=== PATIENT | female | born 1940 | race Caucasian/White ===

== ENCOUNTER → 2017-01-19 | Outpatient (CLI) | payer MEDICARE ==
--- NOTE | 2017-01-20 08:22 | MM ---
Reason for exam: screening (asymptomatic). Last mammogram was performed 1 year ago. History: Patient is postmenopausal. Family history of premenopausal breast cancer in sister at age 50 and premenopausal breast cancer in mother at age 50. Took estrogen for 10 years beginning at age 55. Physical Findings: A clinical breast exam by your physician is recommended on an annual basis and results should be correlated with mammographic findings. MG Screening Mammo w CAD Bilateral CC and MLO view(s) were taken. Prior study comparison: January 15, 2016, bilateral MG screening mammo w CAD. September 06, 2014, bilateral MG screening mammo w CAD. June 12, 2013, bilateral digital screening mammo w/CAD. There are scattered fibroglandular densities. Finding: There are typically benign round calcifications in both breasts. Grouped round calcifications in the left central position, stable. There is no discrete abnormality. ASSESSMENT: Benign, BI-RAD 2 RECOMMENDATION: Routine screening mammogram of both breasts in 1 year.
== END | disposition home or self-care (01) ==
LOC: RADMAMWWP 14:13
PROVIDERS: ATTEND Obstetrics & Gynecology
DX: Z12.31 Encounter for screening mammogram for malignant neoplasm of breast (principal)

== ENCOUNTER 2017-07-26 15:41 | Inpatient (IN) | payer MEDICARE ==
[2017-07-26] MEDS ORDERED: SODIUM CHLORIDE 0.9% 500 ML IV STA (16:08)
[2017-07-26] MEDS ORDERED: SODIUM CHLORIDE 0.9% 1,000 ML IV STA (16:08)
[2017-07-26] MEDS ORDERED: DILTIAZEM 5 MG/ML 5 ML VIAL IVP STA (16:08)
--- NOTE | 2017-07-26 16:10 | ED ---
General Adult HPI - General Chief complaint: Arrhythmia/Palpitations Stated complaint: abnormal EKG-sent by Dr. Henson Time Seen by Provider: 07/26/17 16:08 Source: patient, RN notes reviewed, old records reviewed Mode of arrival: wheelchair Limitations: no limitations - History of Present Illness Initial comments: This is a 77-year-old female to the ER for evaluation states this patient's today for evaluation of shortness of breath unable to get her cough up. Patient has x-ray history of smoking as well as history of high blood pressure high cholesterol. Patient saw family doctor in evaluation for this issue. She was sent to ER for evaluation of heart rate. Patient coming in complaining of shortness of breath with exertion well tonight otherwise denying any chest pain no recent fevers. Patient states she still feels like she is had the flu for the past week, no nausea vomiting diarrhea. No recent change in medications - Related Data Home Medications Medication Instructions Recorded Confirmed Ascorbic Acid [Vitamin C] 1,000 mg PO DAILY 12/31/14 12/31/14 Aspirin 81 mg PO DAILY 12/31/14 12/31/14 Calcium/Magnesium/Zinc 1 tab PO DAILY 12/31/14 12/31/14 [Uodwzpv-Cednqoufq-Jztn Tablet] Famotidine [Pepcid AC] 10 mg PO DAILY PRN 12/31/14 12/31/14 Fish Oil/Borage/Flax/Om3,6,9 1 300 mg PO DAILY 12/31/14 12/31/14 [[place] 3-6-9 Complex Softgel] Potassium Chloride [K-Tab ER] 10 meq PO DAILY 12/31/14 12/31/14 Quinapril/Hydrochlorothiazide 1 tab PO HS 12/31/14 12/31/14 [Quinapril-Hctz 20-25 mg Tab] Rosuvastatin [Crestor] 10 mg PO DAILY 12/31/14 12/31/14 Vitamin B Complex 1 each PO DAILY 12/31/14 12/31/14 Allergies Allergy/AdvReac Type Severity Reaction Status Date / Time No Known Allergies Allergy Verified 12/31/14 08:25 Review of Systems ROS Statement: Those systems with pertinent positive or pertinent negative responses have been documented in the HPI. ROS Other: All systems not noted in ROS Statement are negative. Past Medical History Past Medical History: GERD/Reflux, Hyperlipidemia, Hypertension, Skin Disorder Additional Past Medical History / Comment(s): PSORIASIS History of Any Multi-Drug Resistant Organisms: None Reported Additional Past Surgical History / Comment(s): COLONOSCOPY,OVARY REMOVED Past Anesthesia/Blood Transfusion Reactions: No Reported Reaction Past Psychological History: No Psychological Hx Reported Smoking Status: Former smoker Past Alcohol Use History: Rare Past Drug Use History: None Reported - Past Family History Sister(s) Family Medical History: Cancer Additional Family Medical History / Comment(s): BREAST General Exam Limitations: no limitations General appearance: alert, in no apparent distress Head exam: Present: atraumatic, normocephalic, normal inspection Eye exam: Present: normal appearance, PERRL, EOMI. Absent: scleral icterus, conjunctival injection, periorbital swelling ENT exam: Present: normal exam, mucous membranes moist Neck exam: Present: normal inspection. Absent: tenderness, meningismus, lymphadenopathy Respiratory exam: Present: normal lung sounds bilaterally. Absent: respiratory distress, wheezes, rales, rhonchi, stridor Cardiovascular Exam: Present: tachycardia, irregular rhythm, normal heart sounds. Absent: systolic murmur, diastolic murmur, rubs, gallop, clicks GI/Abdominal exam: Present: soft, normal bowel sounds. Absent: distended, tenderness, guarding, rebound, rigid Extremities exam: Present: normal inspection, full ROM, normal capillary refill. Absent: tenderness, pedal edema, joint swelling, calf tenderness Back exam: Present: normal inspection Neurological exam: Present: alert, oriented X3, CN II-XII intact Psychiatric exam: Present: normal affect, normal mood Skin exam: Present: warm, dry, intact, normal color. Absent: rash Course Vital Signs 07/26/17 15:53 Temperature 98.1 F Pulse Rate 139 H Respiratory 18 Rate Blood Pressure 145/93 O2 Sat by Pulse 97 Oximetry - Reevaluation(s) Reevaluation #1: 07/26/17 16:32 Patient denies pain, no significant shortness of breath with rest but states she does feel better with heart rate control EKG Findings - EKG Comments: EKG Findings:: EKG shows a flutter rate of 138, QRS 134, QTC 563 Medical Decision Making - Medical Decision Making 77 female DEL with new onset atrial fibrillation with RVR, patient be admitted for anticoagulation and rate control, cardiology evaluation and monitoring of hemodynamic status - Radiology Data Radiology results: report reviewed (Chest x-rays negative for acute disease), image reviewed Critical Care Time Critical Care Time: Yes Total Critical Care Time: 31 Disposition Clinical Impression: Atrial fibrillation, Atrial fibrillation with RVR Disposition: ADMITTED IP TO THIS HOSP Condition: Fair Referrals: Shilo Henson MD [Primary Care Provider] - 1-2 days
[2017-07-26] MEDS ORDERED: DILTIAZEM 125 MG in SODIUM CHLORIDE 0.9% 100 ML IV ONE (16:15)
[2017-07-26] MEDS ORDERED: HEPARIN SODIUM,PORCINE 5,000 UNIT/ML 1 ML VIAL IV PRN (16:33)
[2017-07-26] MEDS ORDERED: ASPIRIN 81 MG PO STA (16:33)
[2017-07-26] MEDS ORDERED: NITROGLYCERIN SL TABS 0.4 MG TAB SUBLINGUAL PRN (16:33)
[2017-07-26] MEDS ORDERED: HEPARIN SODIUM,PORCINE 5,000 UNIT/ML 1 ML VIAL IV ONE (16:33)
[2017-07-26] MEDS ORDERED: HEPARIN SOD,PORK IN 0.45% NACL 25,000 UNIT in 0.45% NACL 1 500ML.BAG IV SCH (16:45)
[2017-07-26 16:46] LABS: Basophils # (A) 0.1 k/uL (0-0.2); Basophils % (A) 1 %; Eosinophils # (A) 0.3 k/uL (0-0.7); Eosinophils % (A) 3 %; HCT 46.4 % (34.0-46.0); HGB 14.5 gm/dL (11.4-16.0); Lymphocytes # (A) 2.3 k/uL (1.0-4.8); Lymphocytes % (A) 27 %; MCH 30.7 pg (25.0-35.0); MCHC 31.2 g/dL (31.0-37.0); MCV 98.3 fL (80.0-100.0); Mean Platelet Volume 8.3; Monocytes # (A) 0.5 k/uL (0-1.0); Monocytes % (A) 6 %; Neutrophils # (A) 5.2 k/uL (1.3-7.7); Neutrophils % (A) 60 %; Platelet Count 214 k/uL (150-450); RBC 4.72 m/uL (3.80-5.40); RDW 14.1 % (11.5-15.5); WBC 8.5 k/uL (3.8-10.6)
[2017-07-26 16:52] LABS: INR 1.1 (<1.2); Partial Thromboplastin Time 22.9 sec (22.0-30.0); Prothrombin Time 10.3 sec (9.0-12.0)
[2017-07-26 16:53] LABS: ALT 105 U/L (9-52); AST 94 U/L (14-36); Albumin 4.5 g/dL (3.5-5.0); Alkaline Phosphatase 100 U/L (38-126); Anion Gap 9 mmol/L; Blood Urea Nitrogen 20 mg/dL (7-17); Calcium 9.7 mg/dL (8.4-10.2); Carbon Dioxide 31 mmol/L (22-30); Chloride 103 mmol/L (98-107); Glucose 99 mg/dL (74-99); Phosphorus 3.6 mg/dL (2.5-4.5); Potassium 4.2 mmol/L (3.5-5.1); Sodium 143 mmol/L (137-145); Total Bilirubin 0.6 mg/dL (0.2-1.3); Total Protein 7.7 g/dL (6.3-8.2)
[2017-07-26 17:05] LABS: Creatine Kinase 49 U/L (30-135)
[2017-07-26 17:18] LABS: Creatine Kinase MB 0.8 ng/mL (0.0-2.4); Troponin I <0.012 ng/mL (0.000-0.034)
--- NOTE | 2017-07-26 17:25 | XR ---
EXAMINATION TYPE: XR chest 2V DATE OF EXAM: 07/26/2017 COMPARISON: NONE HISTORY: Abnormal cardiogram. Weakness. TECHNIQUE: Frontal and lateral views of the chest are obtained. FINDINGS: There is no heart failure nor confluent pneumonic infiltrate. There is mild coarsening of interstitial markings. Heart size is normal. There are chest leads. Costophrenic angles are clear. IMPRESSION: Minimal fibrotic changes. No acute lung disease. No heart failure.
[2017-07-26] MEDS: SODIUM CHLORIDE 0.9% 1,000 ML IV SCH (19:30)
[2017-07-26 20:38] LABS: Creatine Kinase 46 U/L (30-135)
[2017-07-26 20:50] LABS: Creatine Kinase MB 0.9 ng/mL (0.0-2.4); Troponin I <0.012 ng/mL (0.000-0.034)
[2017-07-26] MEDS: METOPROLOL TARTRATE 25 MG TAB PO SCH (21:18)
[2017-07-26] MEDS: FUROSEMIDE 10 MG/ML 4 ML VIAL IV SCH (21:18)
--- NOTE | 2017-07-26 21:47 | HP ---
HISTORY AND PHYSICAL CHIEF COMPLAINT: Shortness of breath. HISTORY OF PRESENT ILLNESS: This 77-year-old female presented to the office after she had called the office requesting some medications for flu. Upon talking with the patient, it appeared that the patient's symptoms were not respiratory but probably cardiac. The patient's symptoms have been present for the past 2- to 3-week range. She says it started with a little cold, but the cold symptoms have practically resolved. She hardly has any cough or any nasal or chest congestion. The patient has no chest pain. She feels her chest is tight. With any activity she gets out of breath. Normally she exercises about 30 minutes on a treadmill; now she is on only about 5 minutes and she is out of breath. She also exhibits some orthopnea. She sleeps on 3 pillows and has to get up by 5:00; she has to sit up on the edge of the bed to catch her breath. The patient says she is better when she is sitting up. Again there are no symptoms to suggest pericarditis. She does not recognize that her heart rate is racing. She has had previous occasional extrasystole. The patient also has had a long-standing history of hypertension, hyperlipidemia. She has mild aortic stenosis. The patient has really not taken any medications for the present symptoms. When she was seen in the office she was noted to have a heart rate of 140. She had an EKG that revealed atrial flutter 2:1. The patient's blood pressure is stable. Blood pressure in the office was 150/80. She weighs 187 pounds. She is 5 feet 4 inches tall and has a BMI of 32.1. The patient in view of this was referred to the emergency room. PAST MEDICAL HISTORY: 1. Hypertension for the past about 17 years. 2. Mild COPD. Patient is an ex-smoker; quit smoking 16 years ago. She has had no history of liver disease, kidney disease or any diabetes, cancer, thyroid condition, ulcers, TB, hepatitis; no history of any rheumatic fever or myocardial infarction or CVA. Patient does have a history of mild right right carotid stenosis and moderate left carotid stenosis. No symptoms with that. She does have mild aortic stenosis. The patient does have a history of psoriasis. PAST SURGICAL HISTORY: 1. Oophorectomy. She is 3 para 3. PERSONAL HISTORY: She is an ex-smoker; used to smoke a pack a day for 25 years; quit 16 years ago. Alcohol: None. Vaccinations: Declined. ALLERGIES: NONE KNOWN. MEDICATIONS: Medications include: 1. Crestor 10 mg daily. 2. Quinapril/hydrochlorothiazide 20/25 one daily. 3. Potassium chloride 10 mEq daily. 4. Aspirin 81 mg daily. SOCIAL HISTORY: Patient is and lives with her spouse. She does exercise regularly by lifting weights and being on a treadmill. She has not exercised much in the past 2 to 3 weeks. FAMILY MEDICAL HISTORY: Father at the age of 78 with acute myocardial infarction. Mother at age 58 with carcinoma of the breast. She had a CVA at 56. Patient had 6 brothers, 5 of whom are . They all had coronary artery disease. One brother is doing okay. Patient has 2 sisters doing okay. One sister of carcinoma of the breast at the age of 73. The patient does have 4 half-sisters and 1 half-brother, doing okay. Patient has 2 daughters and 1 son, doing okay. They all have a history of psoriasis. REVIEW OF SYSTEMS: NEURO: Denies any headaches, dizziness. No double vision or blurred vision. No symptoms of TIA or syncope or seizures. PSYCH: No anxiety, depression. CARDIAC: Denies chest pain. Does have some tightness of the chest and shortness of breath. Shortness of breath is mostly dyspnea on exertion. RESPIRATORY: Minimal cough. No hemoptysis. GI: No nausea, vomiting, abdominal pain, diarrhea, constipation, hematochezia, melena. : No symptoms of dysuria, hematuria, urgency or frequency. EXTREMITIES: Denies pain, edema. CONSTITUTIONAL: No fever, chills. SKIN: Has a history of psoriasis. Weight is stable. ENT: No symptoms. PHYSICAL EXAMINATION: Pleasant female, at present in no distress. VITAL SIGNS: As mentioned above, blood pressure was 150/80 with heart rate of 140. Respirations are 18. Afebrile. HEENT: Normocephalic. Pupils reactive. Nostrils clear. Oral cavity moist. Ears reveal no drainage. NECK: Supple. No JVD. Palpable carotid bruits, right more prominent than left. CHEST EXAMINATION: Occasional rhonchi, right base. CARDIAC: Distant heart sounds, S1, S2 with no gallops. Irregular rapid rhythm. ABDOMEN: Soft. No palpable masses. Bowel sounds normal. No organomegaly. No abdominal bruits. Extremities reveal no edema. Good pulses, both upper and lower extremities. Neurologically awake, alert, oriented x3 with well-coordinated movements. LABORATORY ASSESSMENT: CBC with a hemoglobin of 14.5, white count 8.5, platelet count 214. PT, PTT are normal. Electrolytes are normal except for a CO2 count of 31. BUN is 20, creatinine 0.9. AST 94, ALT 105. Negative troponins. Thyroid is normal. Albumin is normal. Chest x-ray: Official report pending; however, it appears that the patient has some venous congestion and borderline cardiomegaly. The radiologist, however, feels the patient has no heart failure. EKG reveals atrial flutter 2:1. ASSESSMENT: 1. Atrial flutter 2:1 rapid rate. 2. 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 3. Hypertension with hypertensive cardiovascular disease. 4. History of hyperlipidemia, on medical therapy. 5. Carotid stenosis with no symptoms. 6. Psoriasis. PLAN: The patient at present is stable. Continue present medical regimen. Patient has been placed on Cardizem drip, anticoagulated. The patient will have an echocardiogram done and we will give the patient a dose of Lasix. Have Cardiology evaluate the patient in view of the flutter. Patient's condition was discussed with the patient. MMODL / BHUPENDRAN: [id number] /
[2017-07-27 02:19] LABS: Appearance,Urine Clear (Clear); Bilirubin,Urine Negative (Negative); Blood,Urine Negative (Negative); Color,Urine Light Yellow; Glucose,Urine (UA) Negative (Negative); Ketones,Urine Negative (Negative); Leukocyte Esterase,Urine Trace (Negative); Mucus,Urine Rare /hpf; Nitrite,Urine Negative (Negative); Protein,Urine Negative (Negative); Specific Gravity,Urine 1.006 (1.001-1.035); Urobilinogen,Urine <2.0 mg/dL (<2.0); WBC,Urine 2 /hpf (0-5)
[2017-07-27] MEDS: SODIUM CHLORIDE 0.9% 1,000 ML IV SCH (02:46)
[2017-07-27 03:03] LABS: Creatine Kinase 52 U/L (30-135)
[2017-07-27 03:17] LABS: Troponin I <0.012 ng/mL (0.000-0.034)
[2017-07-27 06:54] LABS: Mean Platelet Volume 7.8; Platelet Count 213 k/uL (150-450)
[2017-07-27 07:03] LABS: Cholesterol 149 mg/dL (<200); HDL Cholesterol 55 mg/dL (40-60); LDL Cholesterol,Calculated 69 mg/dL (0-99); Triglycerides 126 mg/dL (<150)
[2017-07-27] MEDS: FUROSEMIDE 10 MG/ML 4 ML VIAL IV SCH ×2 (08:03→20:35)
[2017-07-27] MEDS: METOPROLOL TARTRATE 25 MG TAB PO SCH (08:03)
[2017-07-27] MEDS ORDERED: ASPIRIN 325 MG TAB PO SCH (09:00)
--- NOTE | 2017-07-27 10:01 | CONS ---
CONSULTATION CHIEF COMPLAINT: Fatigue and shortness of breath. This is a 77-year-old lady with history of hypertension and dyslipidemia who presented to her primary care physician with asking for Tamiflu thinking that she had a flu-like illness. The patient's symptoms started about 2-3 weeks ago, initially 2-3 weeks ago, initially started with some cold-like symptoms that resolved spontaneously, but subsequently she has been becoming progressively short of breath. She normally walks on the treadmill for about 30 minutes. Now she is only able to walk for about 5 minutes, and is becoming short of breath. She also has orthopnea. She denies leg edema, palpitations, dizziness or syncope. There is no prior history of coronary artery disease or congestive heart failure. She has had echocardiograms in the past and have showed normal LV function with mild aortic stenosis. On this admission, she was in new onset atrial flutter with 2-1 block. The patient is currently on intravenous Cardizem with better controlled ventricular rate and is on IV heparin. PAST MEDICAL HISTORY: Significant for hypertension, dyslipidemia. MEDICATIONS: Medications at home include Crestor 10 mg daily, and quinapril and K-Dur. ALLERGIES: No known drug allergies. FAMILY HISTORY: Negative for premature coronary artery disease. SOCIAL HISTORY: Negative for smoking, EtOH abuse, or drug abuse. REVIEW OF SYSTEMS: HEENT is unremarkable. Cardiac as described above. Respiratory as described above. GI negative. Genitourinary negative. Allergy/Immunology: None. Skin: Negative. Musculoskeletal negative. Endocrine: Negative. Derm: Negative. Constitutional negative. Oncological negative. Rest of the system review is not relevant. EXAM: Comfortable at rest. Heart rate is 110 beats per minute, irregularly irregular. Blood pressure is 147/72, respirations 18. Chest exam reveals good air entry bilaterally. Heart exam reveals first and second heart sounds, irregular rhythm. Systolic murmur at apex. Abdomen is soft. Exam of extremities did not reveal edema. Peripheral pulses are felt. LABS: Do show that the troponins are negative. TSH is normal. LDL cholesterol is 69, creatinine is normal at 0.9. Hemoglobin is 14.5. ASSESSMENT: Typical atrial flutter with poorly controlled ventricular rate. PLAN: The patient's atrial flutter seems to be at least 3-week-old at this time. I am going to start her on anticoagulant and beta nav for rate control. Obtain a 2D echo. Once heart rate is well controlled, she can be discharged home and I will do a transesophageal echo followed by cardioversion after 3 weeks of anticoagulation. If she is covered for Eliquis, we will start her on Eliquis. Thank you for letting us to participate in the care of this pleasant lady. JOANNA / RADHIKA: [id number] /
[2017-07-27] MEDS: APIXABAN 5 MG TAB PO SCH ×2 (10:53→20:35)
[2017-07-27] MEDS: METOPROLOL SUCCINATE (ER) 50 MG TAB.ER.24H PO SCH (10:53)
--- NOTE | 2017-07-27 17:13 | ECHOF ---
Referral Reason:afib MEASUREMENTS -------- HEIGHT: 162.6 cm WEIGHT: 85.7 kg BP: 147/70 RVIDd: 2.9 cm (< 3.3) IVSd: 1.6 cm (0.6 - 1.1) LVIDd: 3.5 cm (3.9 - 5.3) LVPWd: 1.6 cm (0.6 - 1.1) IVSs: 1.8 cm LVIDs: 2.5 cm LVPWs: 1.8 cm LAESV Index (A-L): 36.77 ml/m Ao Diam: 3.2 cm (2.0 - 3.7) AV Cusp: 1.3 cm (1.5 - 2.6) LA Diam: 3.3 cm (2.7 - 3.8) EPSS: 0.8 cm MV E Johnathon: 1.49 m/s MV DecT: 417 ms MV A Johnathon: 0.01 m/s MV E/A Ratio: 232.87 AV maxP.93 mmHg AV meanP.39 mmHg AR PHT: 538 ms RAP: 15.00 mmHg RVSP: 49.15 mmHg MV EF SLOPE: 70.42 mm/s (70 - 150) MV EXCURSION: 1.29 cm (> 18.000) FINDINGS -------- Atrial fibrillation. This was a technically adequate study. The left ventricular size is normal. There is moderate concentric left ventricular hypertrophy. O verall left ventricular systolic function is normal with, an EF between 55 - 60 %. The right ventricle is normal in size and function. LA is moderately dilated 34-39 ml/m2 RA appears enlarged. Aortic valve is trileaflet and is moderately thickened. There is moderate aortic regurgitation. T he aortic pressure half-time by doppler is 538ms. There is mild to moderate aortic stenosis present . Peak/mean gradient across the Aortic Valve is 29.93mmHg / 16.39mmHg. The mitral valve leaflets are mildly thickened. Moderate mitral annular calcification present. Mo [id number] mitral regurgitation is present. The peak and mean MV gradients are 12.22mmHg 5.0 1mmHg as measured by doppler. Mitral valve pressure gradients are due to aortic insufficiency and a trial fibrillation. Moderate to severe tricuspid regurgitation present. There is mild to moderate pulmonary hypertensio n. The right ventricular systolic pressure, as measured by Doppler, is 49.15mmHg. Trace/mild (physiologic) pulmonic regurgitation. The aortic root size is normal. The IVC is dilated with normal collapse. The pericardium is normal. CONCLUSIONS -------- 1. Atrial fibrillation. 2. This was a technically adequate study. 3. The left ventricular size is normal. 4. There is moderate concentric left ventricular hypertrophy. 5. Overall left ventricular systolic function is normal with, an EF between 55 - 60 %. 6. LA is moderately dilated 34-39 ml/m2 7. RA appears enlarged. 8. Aortic valve is trileaflet and is moderately thickened. 9. There is moderate aortic regurgitation. 10. The aortic pressure half-time by doppler is 538ms. 11. There is mild to moderate aortic stenosis present. 12. Peak/mean gradient across the Aortic Valve is 29.93mmHg / 16.39mmHg. 13. The mitral valve leaflets are mildly thickened. 14. Moderate mitral annular calcification present. 15. Yssfqurr-[id number] mitral regurgitation is present. 16. The peak and mean MV gradients are 12.22mmHg 5.01mmHg as measured by doppler. 17. Mitral valve pressure gradients are due to aortic insufficiency and atrial fibrillation. 18. Moderate to severe tricuspid regurgitation present. 19. There is mild to moderate pulmonary hypertension. 20. The right ventricular systolic pressure, as measured by Doppler, is 49.15mmHg. 21. Trace/mild (physiologic) pulmonic regurgitation. 22. The aortic root size is normal. 23. The IVC is dilated with normal collapse. EXECUTIVE CONSULTANT: Dar Trotter RDCS
--- NOTE | 2017-07-27 18:46 | P.PN ---
Subjective Progress Note Date: 07/27/17 Principal diagnosis: Atrial fib flutter This 77-year-old female was admitted to the hospital yesterday with about a 3 week duration of dyspnea on exertion and some orthopnea and occasional PND. The patient denied any symptoms of palpitations or angina. She was noted to be in atrial flutter at the time of my examination with a rate of about 140. The patient was felt to be in 2-1 atrial flutter block. She was referred to the emergency room. Cardizem drip was started. Patient's heart rate slowed down but the patient was noted to be in atrial flutter fib subsequently. She had no other associated symptoms. There's shortness of breath was most of dyspnea with activity. She normally does treadmill 20 minutes. She says she is only been doing about 5 minutes and that too was a push. Patient has been anticoagulated since admission and the Cardizem drip was down to 2.5 mg which will be increased to 5 mg this morning as the heart rate is still in the 120s. Patient's been given 2 doses of Lasix as she has symptoms suggestive some CHF. Patient did have echocardiogram done which reveals adequate left ventricular function however there is some dilatation of biatria, she does have evidence of mild to moderate aortic stenosis with some aortic regurgitation and moderate mitral regurgitation and tricuspid regurgitation and mild to moderate pulmonary hypertension. The patient seen by cardiology consult noted. A planned place the patient on a beta nav and plan a cardioversion in 3 weeks. Patient hasn 't been on heparin and since no further invasive evaluation planned at this time she'll be switched over to Eliquis with 5 mg twice a day. REVIEW OF SYSTEMS: Neuro: Denies any headaches dizziness. Psych: Denies anxiety depression feels oriented. Cardiac: Denies chest pain and angina palpitations. Respiratory: Does have dyspnea on exertion getting to the bathroom. GI: Denies nausea vomiting or abdominal pain. No diarrhea or constipation, no bowel movement yet. : Denies dysuria hematuria. Extremities: Denies pain. No edema. Skin: Intact. Constitutional: No fever, chills. Objective - Vital Signs Vital signs: Vital Signs Temp 97.6 F 07/27/17 16:00 Pulse 132 H 07/27/17 16:00 Resp 18 07/27/17 16:00 BP 121/58 07/27/17 16:00 Pulse Ox 94 L 07/27/17 16:00 Intake & Output 07/26/17 07/27/17 07/27/17 18:59 06:59 18:59 Intake Total 1179.472 960 Output Total 400 Balance 779.472 960 Weight 80.739 kg 86.1 kg Intake: Intake, IV Titration 1179.472 Amount Diltiazem 125 mg In 30 Sodium Chloride 0.9% 100 ml @ 5 MG/HR 5 mls/hr IV .Q24H ONE Rx#:[id number] Heparin Sod,Pork in 0.45% 149.472 NaCl 25,000 unit In 0.45 % NaCl 1 500ml.bag @ 12 UNITS/KG/HR 19.37 mls/hr IV .Q24H TJ Rx#: [id number] Sodium Chloride 0.9% 1, 1000 000 ml @ 100 mls/hr IV . Q10H TJ Rx#:[id number] Oral 960 Output: Urine 400 Other: Voiding Method Toilet Toilet # Voids 2 1 # Bowel Movements 0 PHYSICAL EXAMINATION: Cooperative, at present in no acute distress. HEENT: Neck supple. No JVD. Chest: Clear to auscultation percussion. Cardiac: Normal S1-S2 heart rhythm is irregularly irregular no gallops systolic murmur 2/6 right second intercostal space and left sternal border and apex. Abdomen: Soft bowel sounds present. Extremities: No edema no tenderness Neurologically: Awake, alert, oriented with well-coordinated movements. - Labs CBC & Chem 7: 07/27/17 06:15 07/26/17 14:30 Labs: Abnormal Lab Results - Last 24 Hours (Table) 07/26/17 07/27/17 07/27/17 Range/Units 22:20 02:07 06:15 APTT 54.4 H 35.6 H (22.0-30.0) sec Ur Leukocyte Esterase Trace H (Negative) Urine Mucus Rare H (None) /hpf Assessment and Plan Assessment: ASSESSMENT: 1. Atrial flutter 2: With rapid ventricular rate. 2. Atrial fibrillation rapid ventricular rate. 3. Hypertensive Vascular disease. 4. Aortic mild to moderate stenosis. 5. Mitral regurgitation. 6. Mild pulmonary hypertension. 7. Hyperlipidemia. PLAN: Continue present medical regimen. Patient will be anticoagulated has been placed on beta nav and Cardizem drip to control patient's heart rate. Patient's condition was discussed with the patient's morning. We will reevaluate the patient tomorrow and if heart rate is controlled she will put discharged home. Patient has received 2 doses of Lasix. We will discontinue Lasix after the third dose.
[2017-07-28 06:23] LABS: Mean Platelet Volume 8.3; Platelet Count 213 k/uL (150-450)
[2017-07-28 06:38] LABS: Anion Gap 11 mmol/L; Blood Urea Nitrogen 21 mg/dL (7-17); Calcium 9.9 mg/dL (8.4-10.2); Carbon Dioxide 32 mmol/L (22-30); Chloride 102 mmol/L (98-107); Glucose 110 mg/dL (74-99); Potassium 4.4 mmol/L (3.5-5.1); Sodium 145 mmol/L (137-145)
[2017-07-28] MEDS: ATORVASTATIN 20 MG TAB PO SCH (09:05)
[2017-07-28] MEDS: DILTIAZEM CD 180 MG CAP.ER.24H PO SCH (09:05)
[2017-07-28] MEDS: POTASSIUM CHLORIDE ER 10 MEQ TAB.ER.PRT PO SCH (09:05)
[2017-07-28] MEDS: METOPROLOL SUCCINATE (ER) 50 MG TAB.ER.24H PO SCH (09:05)
[2017-07-28] MEDS: APIXABAN 5 MG TAB PO SCH ×2 (09:05→21:04)
--- NOTE | 2017-07-28 11:29 | P.PN ---
Subjective Progress Note Date: 07/28/17 This pleasant 77-year-old female with history of hypertension and hyperlipidemia, who presented to her primary care doctor's office with flulike symptoms. She was found to be in atrial fibrillation with rapid ventricular response and hence was admitted to the hospital. EKG on admission here showed atrial flutter with 2 to one conduction. She continues to be in atrial flutter with a heart rate up in the 130s this morning. She was initiated on oral Cardizem by her primary care doctor. We will also give her one additional dose of beta nav this morning. If patient persists to have a rapid heartbeat we may consider the addition of amiodarone to her medication regime. She has also been approved for [employer]. Objective - Vital Signs Vital signs: Vital Signs Temp 97 F L 07/28/17 08:00 Pulse 141 H 07/28/17 08:00 Resp 20 07/28/17 08:00 BP 139/58 07/28/17 08:00 Pulse Ox 93 L 07/28/17 08:00 Intake & Output 07/27/17 07/28/17 07/28/17 18:59 06:59 18:59 Intake Total 960 200 180 Output Total 280 Balance 960 -80 180 Weight 83.1 kg Intake: Oral 960 200 180 Output: Urine 280 Other: Voiding Method Toilet Toilet # Voids 1 3 # Bowel Movements 0 - Exam PHYSICAL EXAMINATION: HEENT: Head is atraumatic, normocephalic. Pupils equal, round. Neck is supple. There is no elevated jugular venous pressure. HEART EXAMINATION: Heart S1 and S2 irregularly irregular CHEST EXAMINATION: Lungs are clear to auscultation and precussion. No chest wall tenderness is noted on palpation or with deep breathing. ABDOMEN: Soft, nontender. Bowel sounds are heard. No organomegaly noted. EXTREMITIES: 2+ peripheral pulses with no evidence of peripheral edema and no calf tenderness noted. NEUROLOGIC patient is awake, alert and oriented -3. . - Labs CBC & Chem 7: 07/28/17 05:38 07/28/17 05:38 Labs: Abnormal Lab Results - Last 24 Hours (Table) 07/28/17 Range/Units 05:38 Carbon Dioxide 32 H (22-30) mmol/L BUN 21 H (7-17) mg/dL Glucose 110 H (74-99) mg/dL Assessment and Plan Plan: Assessment and plan #1 typical atrial flutter with rapid ventricular response #2 persistent atrial fibrillation #3 hyperlipidemia #4 hypertension Plan Patient has been initiated on oral Cardizem today, we will also give her an additional dose of beta nav, if her tachycardia persists we will consider the addition of amiodarone. Patient is also covered and been initiated on Eliquis. DNP note has been reviewed, I agree with a documented findings and plan of care. Patient was seen and examined.
--- NOTE | 2017-07-28 12:47 | CDI ---
Last Revision, May 2017 Documentation Clarification Form Date: 07/28/2017 12:33:00 PM From: Starr Duarte RN, CCDS Admit Date: 07/26/2017 4:33:00 PM Patient Name: Maral Branham Visit Number: [id number] ATTENTION: The Clinical Documentation Specialists (CDI) and [facility] Coding Staff appreciate your assistance in clarifying documentation. Please respond to the clarification below the line at the bottom and electronically sign. The CDI & [facility] Coding staff will review the response and follow-up if needed. Please note: Queries are made part of the Legal Health Record. If you have any questions, please contact the author of this message via ITS. Dr. Shilo Henson CHF has been documented in your notes and requires further specificity. History/Risk Factors: Carotid stenosis bilaterally, aortic stenosis, HTN, COPD, Clinical Indicators: 07/26 H&P: "Congestive cardiac failure secondary to left ventricular failure symptoms." 07/27 Attending: "Patient's been given 2 doses of Lasix as she has symptoms suggestive some CHF." VS/Pulse OX: Temp 98.1, hr 139, RR 18, B/P 145/93, spo2 97% BNP: 391 Echocardiogram Results: EF 55-60% Chest X Ray: Minimal fibrotic changes. No acute lung disease. No heart failure. Treatment: Lasix 40 mg IVP Q 12 hrs In your professional opinion, can you please clarify the acuity and type of CHF if known? Systolic Heart Failure: Acute Acute on Chronic Diastolic Heart Failure: Acute Acute on Chronic Systolic & Diastolic Heart Failure: Acute Acute on Chronic Heart Failure Unable to Determine Other, please specify Please continue to document in your progress notes and discharge summary in order to capture severity of illness and risk of mortality. Include clinical findings that support your diagnosis. MTDD
--- NOTE | 2017-07-28 19:59 | PN ---
PROGRESS NOTE DATE OF SERVICE: 07/28/2017 CHIEF COMPLAINT: Re-evaluation. HISTORY OF PRESENT ILLNESS: This is a 77-year-old who was admitted to the hospital with atrial flutter with rapid rate. The patient has been in and out of atrial fibrillation/flutter pattern. The patient has been seen by Cardiology. The patient is on a beta nav. We have started her on Cardizem orally. If the heart rate does not stabilize, patient may require further medications such as amiodarone. The patient is on anticoagulation. She feels better, except when she walks she does get out of breath. This has somewhat improved. She is no longer on Lasix. REVIEW OF SYSTEMS: NEURO: Denies any headaches, dizziness. PSYCH: No anxiety. CARDIAC: No chest pain, angina, palpitations. GI: No nausea, vomiting, abdominal pain, diarrhea. : No symptoms of dysuria, hematuria. EXTREMITIES: No pain, edema. CONSTITUTIONAL: No fever, chills. PHYSICAL EXAMINATION: Pleasant female, at present in no distress. Vital signs revealed at the time of evaluation temperature 97, pulse 141, respirations 20, blood pressure 139/58, pulse ox 93% on room air. HEENT: Normocephalic. NECK: No JVD. CHEST: Clear to auscultation. CARDIAC: Normal S1, S2 with no gallops. Irregularly irregular. Systolic murmur 2/6, left sternal border. ABDOMEN: Soft. Bowel sounds present. Extremities reveal no edema, no tenderness. NEUROLOGIC: Awake, alert, oriented with well-coordinated movements. LABORATORY ASSESSMENT: Normal electrolytes. BUN 21, creatinine 0.99. ASSESSMENT: 1. Atrial fibrillation/flutter. 2. Rapid atrial fibrillation. 3. Hypertension. 4. Hyperlipidemia. 5. Mitral regurgitation. 6. Mild aortic stenosis. PLAN: Continue present medical regimen. Patient's condition was discussed with the patient and her spouse. Prognosis remains guarded. Cardizem CD 180 is going to be added. If the heart rate continues to remain high, may need alternate medical therapy. Condition is guarded. Await cardiology evaluation. MMODL / IJN: [id number] /
[2017-07-28] MEDS ORDERED: LISINOPRIL-HCTZ 20-25 MG 1 EACH TAB PO SCH (21:00)
[2017-07-29] MEDS: DILTIAZEM CD 180 MG CAP.ER.24H PO SCH (07:59)
[2017-07-29] MEDS: APIXABAN 5 MG TAB PO SCH ×2 (07:59→20:48)
[2017-07-29] MEDS: METOPROLOL SUCCINATE (ER) 50 MG TAB.ER.24H PO SCH (07:59)
[2017-07-29] MEDS: ATORVASTATIN 20 MG TAB PO SCH (07:59)
[2017-07-29] MEDS: POTASSIUM CHLORIDE ER 10 MEQ TAB.ER.PRT PO SCH (08:00)
[2017-07-29] MEDS ORDERED: DEXTROSE 5% IN WATER 100 ML with AMIODARONE 150 MG IV ONE (09:03)
[2017-07-29] MEDS: AMIODARONE 450 MG in DEXTROSE 5% IN WATER 250 ML IV SCH ×4 (09:46→16:34)
--- NOTE | 2017-07-29 11:15 | P.PN ---
Subjective Progress Note Date: 07/29/17 This pleasant 77-year-old female with history of hypertension and hyperlipidemia, who presented to her primary care doctor's office with flulike symptoms. She was found to be in atrial fibrillation with rapid ventricular response and hence was admitted to the hospital. EKG on admission here showed atrial flutter with 2 to one conduction. She continues to be in atrial flutter with a heart rate up in the 130s this morning. She was initiated on oral Cardizem by her primary care doctor. We will also give her one additional dose of beta nav this morning. If patient persists to have a rapid heartbeat we may consider the addition of amiodarone to her medication regime. She has also been approved for [employer]. 06-28-2017 Patient was seen and examined this morning, continues to be in atrial flutter with a heart rate in the 130s to 140s. We will discontinue the by mouth Cardizem and initiate IV amiodarone per protocol. Blood pressure 132/60, heart rate in the 130s to 140s range. Sodium 145, potassium 4.4, BUN 21, creatinine 0.9. Objective - Vital Signs Vital signs: Vital Signs Temp 97.0 F L 07/29/17 08:00 Pulse 138 H 07/29/17 08:00 Resp 18 07/29/17 08:00 BP 90/60 07/29/17 09:46 Pulse Ox 94 L 07/29/17 08:00 Intake & Output 07/28/17 07/29/17 07/29/17 18:59 06:59 18:59 Intake Total 920 100 426 Output Total 0 0 Balance 920 100 426 Weight 83.2 kg Intake: IV 10 Invasive Line 1 10 Oral 920 100 416 Output: Urine 0 0 Other: Voiding Method Toilet Toilet # Voids 2 - Exam PHYSICAL EXAMINATION: HEENT: Head is atraumatic, normocephalic. Pupils equal, round. Neck is supple. There is no elevated jugular venous pressure. HEART EXAMINATION: Heart S1 and S2 irregularly irregular CHEST EXAMINATION: Lungs are clear to auscultation and precussion. No chest wall tenderness is noted on palpation or with deep breathing. ABDOMEN: Soft, nontender. Bowel sounds are heard. No organomegaly noted. EXTREMITIES: 2+ peripheral pulses with no evidence of peripheral edema and no calf tenderness noted. NEUROLOGIC patient is awake, alert and oriented -3. . - Labs CBC & Chem 7: 07/28/17 05:38 07/28/17 05:38 Assessment and Plan Plan: Assessment and plan #1 typical atrial flutter with rapid ventricular response #2 persistent atrial fibrillation #3 hyperlipidemia #4 hypertension Plan We'll discontinue the by mouth Cardizem and initiate IV amiodarone per protocol. DNP note has been reviewed, I agree with a documented findings and plan of care. Patient was seen and examined.
[2017-07-29] MEDS: LISINOPRIL-HCTZ 10-12.5 MG 1 EACH TAB PO SCH (11:50)
[2017-07-29] MEDS ORDERED: ACETAMINOPHEN TAB 325 MG TAB PO PRN (14:12)
--- NOTE | 2017-07-29 18:36 | PN ---
PROGRESS NOTE CHIEF COMPLAINT: Shortness of breath. HISTORY OF PRESENT ILLNESS: This 77-year-old female presented to the office because of shortness of breath. Patient was noted to be in atrial flutter 2:1, rate of 140. She was referred to the hospital and subsequently admitted to the hospital, anticoagulated, placed on Cardizem drip. She does at times go into atrial fibrillation. The patient is still having a rapid rate. The patient is on Cardizem and metoprolol. There is no underlying thyroid condition. Her shortness of breath has improved. The patient is being followed by the principal planner. The plan is that the patient may need to be placed on amiodarone. REVIEW OF SYSTEMS/PHYSICAL EXAMINATION: NEURO: Denies any headaches, dizziness. PSYCH: No anxiety. CARDIAC: No chest pain. RESPIRATORY: No shortness of breath at rest. Minimal dyspnea with activity. This has improved. HEENT: Normocephalic. NECK: Supple. No JVD. CHEST: Clear to auscultation. CARDIAC: Normal S1, S2 with no gallops. Irregular rhythm. Systolic murmur, right second intercostal space. ABDOMEN: Soft. Bowel sounds present. EXTREMITIES: No edema. Neurologically awake, alert, oriented x3 with well-coordinated movements. LABORATORY ASSESSMENT: None new. ASSESSMENT: 1. Atrial flutter, variable blocks. 2. Intermittent atrial fibrillation, rapid ventricular rate. 3. Hypertension. 4. Hyperlipidemia. 5. Mild aortic stenosis and moderate mitral regurgitation. PLAN: Continue present medical regimen. As mentioned above, plan is for amiodarone. Meanwhile, the patient is continued on beta blockers, Cardizem. Prognosis remains guarded. The patient is on adequate anticoagulation. The patient's condition is stable. Prognosis remains guarded. MMODL / IJN: [id number] /
[2017-07-30] MEDS: AMIODARONE 450 MG in DEXTROSE 5% IN WATER 250 ML IV SCH ×4 (09:02)
[2017-07-30] MEDS: METOPROLOL SUCCINATE (ER) 50 MG TAB.ER.24H PO SCH (09:03)
[2017-07-30] MEDS: LISINOPRIL-HCTZ 10-12.5 MG 1 EACH TAB PO SCH (09:03)
[2017-07-30] MEDS: POTASSIUM CHLORIDE ER 10 MEQ TAB.ER.PRT PO SCH (09:03)
[2017-07-30] MEDS: ATORVASTATIN 20 MG TAB PO SCH (09:03)
[2017-07-30] MEDS: APIXABAN 5 MG TAB PO SCH ×2 (09:03→20:31)
[2017-07-30] MEDS ORDERED: SODIUM CHLORIDE 0.9% 1,000 ML IV SCH (12:00)
--- NOTE | 2017-07-30 12:03 | P.PN ---
Subjective Progress Note Date: 07/30/17 Principal diagnosis: Atrial fib flutter History present illness: This 77-year-old female was admitted to the hospital with atrial flutter 2 to 1 repeat of 140. Patient had associated symptoms of shortness of breath with minimal activity. Patient had also some orthopnea and occasional episode of PND. Patient's symptoms were suggestive of some left ventricular failure associated with atrial flutter and rapid rate. Patient started on anticoagulation placed on Cardizem drip started on beta nav. Patient was also given amiodarone yesterday however the patient continues to do. Able atrial flutter blocks without recent times to 07/27/1939 range. Patient has no associated symptoms of chest pain. Her breathing is improved after the initial Lasix. The patient denies any chest pain or even symptoms of palpitations. There is no associated dizziness. Patient's blood pressures been running in the lower sided and thus her Zestoretic will be discontinued. Patient's been discontinued from amiodarone. Patient is seen the wastewater analyst past couple days and today Dr. Fonseca the electrophysiology service in the patient. He is recommending a abellaton as planned for Tuesday. Patient explained the procedure by Dr. Fonseca and I reinforced what he had said and answered patient's questions. Patient is ready for the procedure REVIEW OF SYSTEMS: Neuro: Denies any headaches dizziness. Psych: Denies anxiety depression feels oriented. Cardiac: Denies chest pain and angina palpitations. Respiratory: Denies shortness of breath cough. GI: Denies nausea vomiting or abdominal pain. No diarrhea or constipation, : Denies dysuria hematuria. Extremities: Denies pain. No edema. Skin: Intact. Constitutional: No fever, chills. Objective - Vital Signs Vital signs: Vital Signs Temp 97.9 F 07/30/17 08:00 Pulse 130 H 07/30/17 08:00 Resp 18 07/30/17 08:00 BP 103/55 07/30/17 08:00 Pulse Ox 94 L 07/30/17 08:00 Intake & Output 07/29/17 07/30/17 07/30/17 18:59 06:59 18:59 Intake Total 1466.793 259 Output Total 1100 Balance 1466.793 -1100 259 Weight 85.1 kg Intake: IV 10 Invasive Line 1 10 Intake, IV Titration 320.793 259 Amount Amiodarone 450 mg In 280.793 259 Dextrose 5% in Water 250 ml @ 1 MG/MIN 34.53 mls/ hr IV .Q7H31M [facility] Rx#: [id number] Dextrose 5% in Water 100 40 ml @ 618 mls/hr IV .Q10M ONE with Amiodarone 150 mg Rx#:[id number] Oral 1136 Output: Urine 1100 Other: Voiding Method Toilet Toilet # Voids 1 # Bowel Movements 2 PHYSICAL EXAMINATION: Cooperative, at present in no acute distress. HEENT: Neck supple. No JVD. Chest: Clear to auscultation percussion. Cardiac: Normal S1-S2 no gallops systolic murmur right second intercostal space murmur . Abdomen: Soft bowel sounds present. Extremities: No edema no tenderness Neurologically: Awake, alert, oriented with well-coordinated movements. - Labs CBC & Chem 7: 07/28/17 05:38 07/28/17 05:38 Assessment and Plan Assessment: ASSESSMENT: 1. Atrial flutter 2-1 with rapid ventricular rate. 2. Left ventricle failure symptoms secondary to rapid heartbeats resolved. 3. Acute left ventricular failure secondary to diastolic dysfunction resolved. 4. Hypertension. 5. Mild aortic stenosis. 6. Moderate mitral regurgitation. 7. Hyperlipidemia. 8. Anticoagulated status PLAN: Continue present medical regimen. Patient is on anticoagulation with no adverse bleeding. She is planned for ablation of atrial flutter. Zestoretic be discontinued. Patient continued on metoprolol. Patient's condition and prognosis discussed with the patient.
[2017-07-30] MEDS: SODIUM CHLORIDE 0.9% 1,000 ML IV SCH (12:11)
[2017-07-30 12:12] LABS: Anion Gap 11 mmol/L; Blood Urea Nitrogen 20 mg/dL (7-17); Calcium 10.2 mg/dL (8.4-10.2); Carbon Dioxide 31 mmol/L (22-30); Chloride 102 mmol/L (98-107); Glucose 114 mg/dL (74-99); Potassium 4.3 mmol/L (3.5-5.1); Sodium 144 mmol/L (137-145)
--- NOTE | 2017-07-30 12:34 | CONS ---
CONSULTATION Maral Branham is a 77-year-old female, patient of Dr. Henson. I was consulted by him for evaluation management of atrial flutter with RVR, symptomatic and refractory to drug therapy. For the last 3 weeks or so, the patient has been feeling out of sorts, short of breath, tired and fatigued. She is unable to exercise on her treadmill. She normally exercises for about 30 minutes every day, but she could barely manage 5 minutes without getting very short of breath. She still feels short of breath walking in the hallways and does not feel right. She does not feel any palpitations, no dizziness, no chest discomfort, no angina-like symptoms. Telemetry reveals atrial flutter with RVR despite IV amiodarone and metoprolol that have been maximized well. She also complained of orthopnea and had to sleep on 3 pillows and had to sit up on the edge of the bed to catch her breath. REVIEW OF SYSTEMS: No fever, chills, or rigors. No cough or expectoration. No nausea, vomiting or diarrhea. No hematuria or dysuria. No strokes or seizures. No skin lesion or musculoskeletal complaint. Her main complaint is shortness of breath with exertion, orthopnea and PND. The 12-lead ECG showed atrial flutter with 2:1 block. PAST HISTORY: Past history of hypertension, past history of mild COPD, past history of smoking. No diabetes. She has mild aortic stenosis and moderate to severe mitral and tricuspid regurgitation on 2-D echo. PAST SURGICAL HISTORY: Oophorectomy. SOCIAL HISTORY: She is an ex-smoker, quit 16 years back. No alcohol use. ALLERGIES: No known drug allergies. MEDICATIONS: Medications at home include Crestor, quinapril, hydrochlorothiazide, potassium and aspirin. SOCIAL HISTORY: She exercises regularly. She lifts weights regularly. She has not been able to exercise for the last 2 to 3 weeks. FAMILY HISTORY: For myocardial infarction. PHYSICAL EXAMINATION: On examination, blood pressure is 106/65 mmHg. Heart rate is 130 beats per minute while standing still. No JVD, no thyromegaly. No carotid bruits. Heart sounds S1, S2, but tachycardic. I cannot appreciate a murmur at this time. She is quite tachycardic. Breath sounds are reduced bilaterally with no rhonchi, no crackles. Abdomen is soft. No lower extremity edema. No JVD. Labs are reviewed. Electrolytes are normal. BUN 21, creatinine 0.99. LDL 69. Troponins are normal. IMPRESSION: 1. Symptomatic atrial flutter with rapid ventricular response. Rate control is difficult despite IV amiodarone followed by oral amiodarone and metoprolol and associated with shortness of breath on exertion, orthopnea, PND. Rates are still fast. 2. Patient is appropriately anticoagulated with Eliquis. 3. Hypertension. 4. History of mitral regurgitation and tricuspid regurgitation and preserved left ventricular systolic function. I had a detailed discussion with the patient as well as with Dr. Henson, I would recommend proceeding with atrial flutter ablation. Eliquis should not be discontinued and she should get Eliquis at 6:00 in the morning of the procedure. Risks of the procedure were explained in some detail. The risks and the benefits of the procedure were explained. Options were discussed. SUGGEST: Proceed with EP study and radiofrequency ablation for management of atrial flutter that was refractory to drug therapy, refractory to rate control medications and symptomatic. TSH has been ordered. MMODL / IJN: [id number] /
--- NOTE | 2017-07-30 12:46 | P.PN ---
Subjective Progress Note Date: 07/30/17 This pleasant 77-year-old female with history of hypertension and hyperlipidemia, who presented to her primary care doctor's office with flulike symptoms. She was found to be in atrial fibrillation with rapid ventricular response and hence was admitted to the hospital. EKG on admission here showed atrial flutter with 2 to one conduction. She continues to be in atrial flutter with a heart rate up in the 130s this morning. She was initiated on oral Cardizem by her primary care doctor. We will also give her one additional dose of beta nav this morning. If patient persists to have a rapid heartbeat we may consider the addition of amiodarone to her medication regime. She has also been approved for Eliquis. 06-28-2017 Patient was seen and examined this morning, continues to be in atrial flutter with a heart rate in the 130s to 140s. We will discontinue the by mouth Cardizem and initiate IV amiodarone per protocol. Blood pressure 132/60, heart rate in the 130s to 140s range. Sodium 145, potassium 4.4, BUN 21, creatinine 0.9. 06/29/2017 Patient was seen and examined this morning, continues to be in atrial flutter with a heart rate in the 120s to 130s. Is still on an amiodarone drip which we will record changer tester to oral. A request was made for Dr. Lopez to see the patient regarding possible atrial flutter ablation. He did come to see her in consult, and has recommended to have a atrial flutter ablation performed on . We will continue current dose of Eliquis, she will also receive a dose at 5 AM the morning of the procedure. The patient has been up ambulating in the hallway, H that she feels short of breath with activity, denies palpitations. Objective - Vital Signs Vital signs: Vital Signs Temp 98.1 F 07/30/17 12:06 Pulse 125 H 07/30/17 12:06 Resp 17 07/30/17 12:06 BP 103/55 07/30/17 08:00 Pulse Ox 98 07/30/17 12:06 Intake & Output 07/29/17 07/30/17 07/30/17 18:59 06:59 18:59 Intake Total 1466.793 439 Output Total 1100 Balance 1466.793 -1100 439 Weight 85.1 kg Intake: IV 10 Invasive Line 1 10 Intake, IV Titration 320.793 259 Amount Amiodarone 450 mg In 280.793 259 Dextrose 5% in Water 250 ml @ 1 MG/MIN 34.53 mls/ hr IV .Q7H31M [facility] Rx#: [id number] Dextrose 5% in Water 100 40 ml @ 618 mls/hr IV .Q10M ONE with Amiodarone 150 mg Rx#:[id number] Oral 1136 180 Output: Urine 1100 Other: Voiding Method Toilet Toilet # Voids 1 1 # Bowel Movements 2 - Exam PHYSICAL EXAMINATION: HEENT: Head is atraumatic, normocephalic. Pupils equal, round. Neck is supple. There is no elevated jugular venous pressure. HEART EXAMINATION: Heart S1 and S2 irregularly irregular CHEST EXAMINATION: Lungs are clear to auscultation and precussion. No chest wall tenderness is noted on palpation or with deep breathing. ABDOMEN: Soft, nontender. Bowel sounds are heard. No organomegaly noted. EXTREMITIES: 2+ peripheral pulses with no evidence of peripheral edema and no calf tenderness noted. NEUROLOGIC patient is awake, alert and oriented -3. . - Labs CBC & Chem 7: 07/28/17 05:38 07/30/17 09:30 Labs: Abnormal Lab Results - Last 24 Hours (Table) 07/30/17 Range/Units 09:30 Carbon Dioxide 31 H (22-30) mmol/L BUN 20 H (7-17) mg/dL Glucose 114 H (74-99) mg/dL Assessment and Plan Plan: Assessment and plan #1 typical atrial flutter with rapid ventricular response #2 persistent atrial fibrillation #3 hyperlipidemia #4 hypertension Plan Once the amiodarone drip as completed we will start the patient on amiodarone 200 mg by mouth 3 times a day. Patient will be scheduled to undergo an atrial flutter ablation on Tuesday. We will continue Eliquis, she will also receive a dose of Eliquis at 5 AM the morning of her procedure. DNP note has been reviewed, I agree with a documented findings and plan of care. Patient was seen and examined.
[2017-07-30] MEDS ORDERED: AMIODARONE 100 MG TAB PO SCH ×2 (15:15→17:00)
[2017-07-30] MEDS ORDERED: AMIODARONE 200 MG TAB PO SCH (16:00)
[2017-07-30] MEDS: AMIODARONE 200 MG TAB PO SCH (20:57)
[2017-07-31] MEDS: ATORVASTATIN 20 MG TAB PO SCH (08:53)
[2017-07-31] MEDS: AMIODARONE 200 MG TAB PO SCH ×2 (08:53→21:11)
[2017-07-31] MEDS: APIXABAN 5 MG TAB PO SCH ×2 (08:53→21:11)
[2017-07-31] MEDS: METOPROLOL SUCCINATE (ER) 50 MG TAB.ER.24H PO SCH (09:32)
--- NOTE | 2017-07-31 10:45 | P.PN ---
Subjective Progress Note Date: 07/31/17 This pleasant 77-year-old female with history of hypertension and hyperlipidemia, who presented to her primary care doctor's office with flulike symptoms. She was found to be in atrial fibrillation with rapid ventricular response and hence was admitted to the hospital. EKG on admission here showed atrial flutter with 2 to one conduction. She continues to be in atrial flutter with a heart rate up in the 130s this morning. She was initiated on oral Cardizem by her primary care doctor. We will also give her one additional dose of beta nav this morning. If patient persists to have a rapid heartbeat we may consider the addition of amiodarone to her medication regime. She has also been approved for Eliquis. 06-28-2017 Patient was seen and examined this morning, continues to be in atrial flutter with a heart rate in the 130s to 140s. We will discontinue the by mouth Cardizem and initiate IV amiodarone per protocol. Blood pressure 132/60, heart rate in the 130s to 140s range. Sodium 145, potassium 4.4, BUN 21, creatinine 0.9. 06/29/2017 Patient was seen and examined this morning, continues to be in atrial flutter with a heart rate in the 120s to 130s. Is still on an amiodarone drip which we will overhead worker to oral. A request was made for Dr. Lopez to see the patient regarding possible atrial flutter ablation. He did come to see her in consult, and has recommended to have a atrial flutter ablation performed on . We will continue current dose of Eliquis, she will also receive a dose at 5 AM the morning of the procedure. The patient has been up ambulating in the hallway, H that she feels short of breath with activity, denies palpitations. 07/31/2017 Mrs. Branham is seen and examined this morning sitting up in the chair. She continues to be in atrial flutter with uncontrolled rate 90s to 130. Blood pressure 118/55. Amiodarone was changes to oral yesterday. She denies symptoms of chest pain, dizziness, palpitations, dizziness, nausea or vomiting. She complains only of mild shortness of breath with exertion. She has been up ambulating the halls. Objective - Vital Signs Vital signs: Vital Signs Temp 96.8 F L 07/31/17 08:00 Pulse 131 H 07/31/17 08:00 Resp 16 07/31/17 08:00 BP 118/55 07/31/17 08:00 Pulse Ox 92 L 07/31/17 08:00 Intake & Output 07/30/17 07/31/17 07/31/17 18:59 06:59 18:59 Intake Total 439 200 180 Output Total 1200 Balance -761 200 180 Weight 83.1 kg Intake: Intake, IV Titration 259 Amount Amiodarone 450 mg In 259 Dextrose 5% in Water 250 ml @ 1 MG/MIN 34.53 mls/ hr IV .Q7H31M [facility] Rx#: [id number] Oral 180 200 180 Output: Urine 1200 Other: Voiding Method Toilet Toilet # Voids 1 1 - Exam Blood pressure 118/55 heart rate 131 GENERAL: Well-appearing, well-nourished and in no acute distress. NECK: Supple without JVD or thyromegaly. LUNGS: Breath sounds clear to auscultation bilaterally. Respiration equal and unlabored. No wheezes, rales or rhonchi. HEART: Irregular rate and rhythm without murmurs, rubs or gallops. S1 and S2 heard. EXTREMITIES: Normal range of motion, no edema. No clubbing or cyanosis. Peripheral pulses intact and strong. - Labs CBC & Chem 7: 07/28/17 05:38 07/30/17 09:30 Labs: Abnormal Lab Results - Last 24 Hours (Table) 07/30/17 Range/Units 09:30 Carbon Dioxide 31 H (22-30) mmol/L BUN 20 H (7-17) mg/dL Glucose 114 H (74-99) mg/dL Assessment and Plan Assessment: ASSESSMENT 1. Atrial flutter with rapid ventricular response 2. Persistent atrial fibrillation 3. Dyslipidemia 5. Hypertension PLAN Continue with amiodarone as was previously ordered. Increase Toprol to 75 mg daily. Continue Eliquis. Plan is for ablation Tuesday with Dr. Fonseca. We will continue to follow with the patient. Nurse Practitioner note has been reviewed, I agree with a documented findings and plan of care. Patient was seen and examined.
[2017-07-31] MEDS: SODIUM CHLORIDE 0.9% 1,000 ML IV SCH (12:19)
--- NOTE | 2017-07-31 18:03 | P.PN ---
Subjective Progress Note Date: 07/31/17 Principal diagnosis: Atrial fib flutter History present illness: This 77-year-old female was admitted to the hospital with dyspnea on exertion. Patient is noted to be in atrial flutter rate 1 40. Following admission patient was anticoagulated, started on Cardizem drip. Patient was also started on metoprolol. Patient was seen by cardiology. Echocardiogram revealed adequate left lingular function some dilatation of both right and left atrium. Patient has persisted in atrial flutter despite medical therapy. Patient has been seen by Dr. Dr. Fonseca who plans to do a ablation on 10/30/2017. Meanwhile patient is on anti-coagulation. Patient continues to stay in atrial flutter 2-1 off-and-on with no symptoms at rest. She notices her breathing has been better than it was at home. Denies any chest pain. No associated symptoms of cough congestion or any problems bowel bladder. No unusual bleeding. REVIEW OF SYSTEMS: Neuro: Denies any headaches dizziness. Psych: Denies anxiety depression feels oriented. Cardiac: Denies chest pain and angina palpitations. Respiratory: Denies shortness of breath cough. GI: Denies nausea vomiting or abdominal pain. No diarrhea or constipation. : Denies dysuria hematuria. Extremities: Denies pain. No edema. Skin: Intact. Constitutional: No fever, chills. Objective - Vital Signs Vital signs: Vital Signs Temp 96.2 F L 07/31/17 16:00 Pulse 117 H 07/31/17 16:00 Resp 16 07/31/17 16:00 BP 103/66 07/31/17 16:00 Pulse Ox 92 L 07/31/17 16:00 Intake & Output 07/30/17 07/31/17 07/31/17 18:59 06:59 18:59 Intake Total 439 200 616 Output Total 1200 Balance -761 200 616 Weight 83.1 kg Intake: Intake, IV Titration 259 Amount Amiodarone 450 mg In 259 Dextrose 5% in Water 250 ml @ 1 MG/MIN 34.53 mls/ hr IV .Q7H31M [facility] Rx#: [id number] Oral 180 200 616 Output: Urine 1200 Other: Voiding Method Toilet Toilet # Voids 1 1 # Bowel Movements 1 PHYSICAL EXAMINATION: Cooperative, at present in no acute distress. HEENT: Neck supple. No JVD. Chest: Clear to auscultation percussion. Cardiac: Normal S1-S2 no gallops systolic murmur 2/6 right second intercostal space rhythm regular with occasional irregular beats, tachycardia . Abdomen: Soft bowel sounds present. Extremities: No edema no tenderness Neurologically: Awake, alert, oriented with well-coordinated movements. - Labs CBC & Chem 7: 07/28/17 05:38 07/30/17 09:30 Assessment and Plan Assessment: ASSESSMENT: 1. Atrial flutter 2-1 with rapid ventricular rate. 2. Left ventricle failure symptoms secondary to rapid heartbeats resolved. 3. Acute left ventricular failure secondary to diastolic dysfunction resolved. 4. Hypertension. 5. Mild aortic stenosis. 6. Moderate mitral regurgitation. 7. Hyperlipidemia. 8. Anticoagulated status PLAN: Continue present medical regimen. Patient is on anticoagulation with no adverse bleeding. She is planned for ablation of atrial flutter. Patient continued on metoprolol. Patient's condition and prognosis discussed with the patient and spouse.
[2017-08-01] MEDS: AMIODARONE 200 MG TAB PO SCH ×2 (07:35→21:12)
[2017-08-01] MEDS: METOPROLOL SUCCINATE (ER) 25 MG TAB.ER.24H PO SCH (07:36)
[2017-08-01] MEDS: ATORVASTATIN 20 MG TAB PO SCH (07:36)
[2017-08-01] MEDS: APIXABAN 5 MG TAB PO SCH ×2 (07:36→21:11)
[2017-08-01] MEDS: SODIUM CHLORIDE 0.9% 1,000 ML IV SCH (12:04)
[2017-08-01 14:20] VITALS: BMI 31.5
--- NOTE | 2017-08-01 14:41 | P.PN ---
Subjective Progress Note Date: 08/01/17 This pleasant 77-year-old female with history of hypertension and hyperlipidemia, who presented to her primary care doctor's office with flulike symptoms. She was found to be in atrial fibrillation with rapid ventricular response and hence was admitted to the hospital. EKG on admission here showed atrial flutter with 2 to one conduction. She continues to be in atrial flutter with a heart rate up in the 130s this morning. She was initiated on oral Cardizem by her primary care doctor. We will also give her one additional dose of beta nav this morning. If patient persists to have a rapid heartbeat we may consider the addition of amiodarone to her medication regime. She has also been approved for Eliquis. 06-28-2017 Patient was seen and examined this morning, continues to be in atrial flutter with a heart rate in the 130s to 140s. We will discontinue the by mouth Cardizem and initiate IV amiodarone per protocol. Blood pressure 132/60, heart rate in the 130s to 140s range. Sodium 145, potassium 4.4, BUN 21, creatinine 0.9. 06/29/2017 Patient was seen and examined this morning, continues to be in atrial flutter with a heart rate in the 120s to 130s. Is still on an amiodarone drip which we will exchange mechanic to oral. A request was made for Dr. Lopez to see the patient regarding possible atrial flutter ablation. He did come to see her in consult, and has recommended to have a atrial flutter ablation performed on . We will continue current dose of Eliquis, she will also receive a dose at 5 AM the morning of the procedure. The patient has been up ambulating in the hallway, H that she feels short of breath with activity, denies palpitations. 07/01/2017 Patient seen and examined this morning, continues to be in atrial flutter with a heart rate of 120. Scheduled to undergo atrial flutter ablation tomorrow with Dr. Fonseca. Objective - Vital Signs Vital signs: Vital Signs Temp 97.7 F 08/01/17 07:40 Pulse 109 H 08/01/17 12:00 Resp 18 08/01/17 12:00 BP 114/82 08/01/17 12:00 Pulse Ox 94 L 08/01/17 12:00 Intake & Output 07/31/17 08/01/17 08/01/17 18:59 06:59 18:59 Intake Total 616 400 360 Balance 616 400 360 Weight 83.3 kg 83.3 kg Intake: Oral 616 400 360 Other: Voiding Method Toilet # Voids 1 1 # Bowel Movements 1 - Exam PHYSICAL EXAMINATION: HEENT: Head is atraumatic, normocephalic. Pupils equal, round. Neck is supple. There is no elevated jugular venous pressure. HEART EXAMINATION: Heart S1 and S2 irregularly irregular CHEST EXAMINATION: Lungs are clear to auscultation and precussion. No chest wall tenderness is noted on palpation or with deep breathing. ABDOMEN: Soft, nontender. Bowel sounds are heard. No organomegaly noted. EXTREMITIES: 2+ peripheral pulses with no evidence of peripheral edema and no calf tenderness noted. NEUROLOGIC patient is awake, alert and oriented -3. . - Labs CBC & Chem 7: 07/28/17 05:38 07/30/17 09:30 Assessment and Plan Plan: Assessment and plan #1 typical atrial flutter with rapid ventricular response #2 persistent atrial fibrillation #3 hyperlipidemia #4 hypertension Plan From cardiology's perspective, we will continue the patient on her current medications. She is scheduled to undergo atrial flutter ablation tomorrow. DNP note has been reviewed, I agree with a documented findings and plan of care. Patient was seen and examined.
--- NOTE | 2017-08-01 23:16 | PN ---
PROGRESS NOTE CHIEF COMPLAINT: Re-evaluation. HISTORY OF PRESENT ILLNESS: This is a 77-year-old female who was admitted to the hospital with atrial flutter 2:1. The patient has been on medications, without conversion to an acceptable heart rate. The patient has been on amiodarone, metoprolol, and was also on Cardizem. The patient is anticoagulated. The patient is planned tomorrow for an ablation. She is otherwise feeling better. Her breathing is better. REVIEW OF SYSTEMS: NEURO: Denies any headaches, dizziness. PSYCH: No anxiety. CARDIAC: No chest pain, angina, palpitation. RESPIRATORY: Denies shortness of breath, cough. GI: No nausea, vomiting, abdominal pain, diarrhea. : No symptoms of dysuria, hematuria. EXTREMITIES: Denies pain, edema. CONSTITUTIONAL: No fever or chills. PHYSICAL EXAMINATION: Pleasant female in no distress. Vitals revealed temperature 97.6, pulse rate 126, respirations 18, blood pressure 108/64, pulse ox 95% on room air. HEENT: Normocephalic. NECK: No JVD. CHEST: Clear to auscultation with mild generalized decreased air flow. CARDIAC: Normal S1, S2 with no gallop. Systolic murmur right second intercostal space and apex. ABDOMEN: Soft. Bowel sounds present. EXTREMITIES: No edema. Neurologically awake, alert, oriented with well-coordinated movements. LABORATORY ASSESSMENT: None new. ASSESSMENT: 1. Atrial flutter 2:1, persistent. 2. Hypertension. 3. Hyperlipidemia, on medical therapy. 4. Mild aortic stenosis. PLAN: Continue present medical regimen. Patient's condition discussed with the patient. Prognosis guarded. MMODL / IJN: [id number] /
[2017-08-02] MEDS: APIXABAN 5 MG TAB PO SCH ×2 (05:53→21:35)
[2017-08-02] MEDS: AMIODARONE 200 MG TAB PO SCH (05:54)
[2017-08-02] MEDS: METOPROLOL SUCCINATE (ER) 25 MG TAB.ER.24H PO SCH (05:54)
[2017-08-02] MEDS: ATORVASTATIN 20 MG TAB PO SCH (05:54)
[2017-08-02] MEDS ORDERED: LACTATED RINGERS 1,000 ML IV SCH (06:05)
[2017-08-02] MEDS ORDERED: MIDAZOLAM 2 MG/2 ML VIAL ONE (08:15)
[2017-08-02] MEDS ORDERED: diphenhydrAMINE 50 MG/ML 1 ML VIAL ONE (08:15)
[2017-08-02] MEDS ORDERED: PHENYLEPHRINE-0.9% NACL SYG 1 MG/10 ML SYRINGE ONE (08:15)
[2017-08-02] MEDS ORDERED: PROPOFOL 10 MG/ML 20 ML VIAL IV ONE (08:15)
[2017-08-02] MEDS ORDERED: HEPARIN SODIUM,PORCINE 5,000 UNIT/ML 1 ML VIAL ONE (08:15)
[2017-08-02] MEDS ORDERED: ISOPROTERENOL 250 MCG/1.25 ML SYR IV ONE (08:15)
[2017-08-02] MEDS ORDERED: fentaNYL (PF) 50 MCG/ML 2 ML AMP ONE (08:15)
[2017-08-02] MEDS ORDERED: IV FLUID CONTINUATION 950 ML IV ONE ×2 (08:15)
[2017-08-02] MEDS ORDERED: WATER FOR INJECTION, STERILE 10 ML VIAL IV ONE (08:15)
[2017-08-02] MEDS ORDERED: LIDOCAINE 2% INJ 20 MG/ML SQ ONE (08:55)
[2017-08-02] MEDS ORDERED: HEPARIN SODIUM (1,000 UNIT/ML) 1,000 UNIT in SODIUM CHLORIDE 0.9% 1,000 ML IRRIGATION ONE (09:00)
[2017-08-02] MEDS ORDERED: ACETAMINOPHEN TAB 325 MG TAB PO PRN (10:41)
[2017-08-02] MEDS ORDERED: HYDROcodone/APAP 5-325MG 1 EACH TAB PO PRN (10:41)
[2017-08-02] MEDS ORDERED: ACETAMINOPHEN IV (For NPO) 1,000 MG in EMPTY BAG 1 BAG IVPB ONE (11:00)
--- NOTE | 2017-08-02 11:01 | P.PN ---
Progress Note - Text Final impression 77-year-old female with typical atrial flutter with RVR, drug refractory and difficult rate control Hypertension Status post successful ablation for atrial flutter with confirmed bidirectional block Mild Sick Sinus Syndrome, postconversion pause at the time of termination of the RF Plan Stop amiodarone completely, continue ELIQUIS on any anticoagulant lifelong for stroke prevention, JOJO VASC score is 4 Reduce metoprolol to 50 mg by mouth daily
--- NOTE | 2017-08-02 11:44 | CE ---
CARDIAC ELECTROPHYSIOLOGY REPORT 77-year-old female who presented with symptomatic atrial flutter with RVR with difficult rate control. She underwent EP study and mapping ablation for her tachycardia. PROCEDURE: The patient was brought to the EP lab in a fasting state. Written informed consent was obtained prior to the procedure. The right and left groin were prepped and draped as per protocol and venous sheaths were placed in the right femoral vein. A long sheath was also placed. The patient was in tachycardia consistent with typical atrial flutter. The catheters were placed in the high right atrium, his bundle area RV coronary sinus, and a mapping ablation catheter was placed in the right atrium in the cava tricuspid isthmus. In the coronary sinus poles, the activation was concentric. Tachycardia cycle length was 288 milliseconds. Entrainment mapping was performed from the cava tricuspid isthmus and confirmed typical isthmus dependent atrial flutter. Following that, intracardiac echo catheter was placed in the right heart, the right atrial appendage and the left atrial appendage and both the atria were scanned and there was no evidence for any intracardiac mass or thrombus. Following that 3D anatomic mapping was performed with intracardiac echo and with the Avitide system and RF ablation in the mid isthmus resulted in termination of the tachycardia with the post- conversion pause. The patient was on metoprolol 75 mg as well as oral amiodarone. She has received IV amiodarone on this admission. Following that, the rest of the ablation was completed in sinus rhythm. A complete anatomic line of block was made from the tricuspid anulus to the eustachian ridge. There was a very small Eustachian pouch and a mid isthmus step. The line was interrogated in 100% grid and was anatomical complete. Split potentials of 490 milliseconds were noted along the line uniformly. Differential pacing was performed across line and bidirectional block was proven. Following that, a full EP study was performed on and off Isuprel. Sinus node recovery times at 600 milliseconds, 500 and 400 milliseconds were 1511, 1434 and 1423 milliseconds. Corresponding corrected sinus node recovery times were minimally mildly prolonged. AV node Wenckebach block 410 milliseconds. No delta waves. No slow pathway conduction. VA Wenckebach block 570 milliseconds. Atrial extra stimulation was performed and atrial ERP was 600/230 milliseconds. Isuprel was started. No atrial fibrillation was induced. AV node Wenckebach block improved to 340 milliseconds. No slow pathway, no delta waves. VA Wenckebach block 420 milliseconds. All catheters were then removed. Please note that at the start of the study, IV heparin was also given 5000 units bolus. She was already on Eliquis since admission. RESULT: Diagnostic EP study revealin. Typical atrial flutter as a mechanism of tachycardia. 2. Status post successful ablation with proven bidirectional block across RF line. 3. Mildly prolonged sinus node recovery times (sinus node dysfunction). PLAN: The patient has been treated with IV amiodarone followed by oral amiodarone since admission. These are being discontinued today. Metoprolol dose is being reduced to 50 mg p.o. daily. Eliquis will be continued lifelong since the Chads Vasc score is at least 4. JOANNA / RADHIKA: [id number] /
--- NOTE | 2017-08-02 12:46 | P.PN ---
Subjective Progress Note Date: 08/02/17 Principal diagnosis: Atrial fib flutter History present illness: This 77-year-old female was admitted to the hospital with atrial flutter.2;1 rate of 140. The patient also had associated symptoms of shortness of breath. No symptoms of angina. Cardiac enzymes were negative. Patient was seen by cardiology. Despite multiple medications patient continued to stay in a rapid rate. Patient was taken in this morning for an ablation. Patient is seen postprocedure. She is in a sinus rhythm rate of 58 now. The patient has no symptoms associated. Denies any chest pain Patient's shortness of breath orthopnea. Patient lying in bed without difficulty. REVIEW OF SYSTEMS: Neuro: Denies any headaches dizziness. Psych: Denies anxiety depression feels oriented. Cardiac: Denies chest pain and angina palpitations. Respiratory: Denies shortness of breath cough. GI: Denies nausea vomiting or abdominal pain. No diarrhea or constipation. : Denies dysuria hematuria. Extremities: Denies pain. No edema. Skin: Intact. Constitutional: No fever, chills. Objective - Vital Signs Vital signs: Vital Signs Temp 97.6 F 08/02/17 11:12 Pulse 58 L 08/02/17 11:57 Resp 16 08/02/17 11:57 BP 126/59 08/02/17 11:57 Pulse Ox 97 08/02/17 11:57 Intake & Output 08/01/17 08/02/17 08/02/17 18:59 06:59 18:59 Intake Total 540 160 670 Balance 540 160 670 Weight 83.3 kg 82.9 kg Intake: IV 670 Intake, IV Titration 160 Amount Sodium Chloride 0.9% 1, 160 000 ml @ 20 mls/hr IV . Q24H [facility] Rx#:[id number] Oral 540 Other: Voiding Method Toilet Toilet # Voids 1 1 PHYSICAL EXAMINATION: Cooperative, at present in no acute distress. HEENT: Neck supple. No JVD. Chest: Clear to auscultation Cardiac: Normal S1-S2 no gallops systolic murmur rt 2nd ICS . Abdomen: Soft bowel sounds present. Extremities: No edema no tenderness Neurologically: Awake, alert, oriented with well-coordinated movements. - Labs CBC & Chem 7: 07/28/17 05:38 07/30/17 09:30 Assessment and Plan Assessment: ASSESSMENT: 1. Atrial flutter rapid ventricular rate resolved post-ablation. 2. Hypertension. 3. Mild aortic stenosis. 4. Hyperlipidemia on medical therapy PLAN: Continue present medical regimen potential discharge home tomorrow if okay with cardiology. Patient's condition stable. She will continue anticoagulation for now.
[2017-08-03 06:23] LABS: HCT 41.1 % (34.0-46.0); HGB 13.4 gm/dL (11.4-16.0); MCH 31.8 pg (25.0-35.0); MCHC 32.6 g/dL (31.0-37.0); MCV 97.5 fL (80.0-100.0); Mean Platelet Volume 7.9; Platelet Count 204 k/uL (150-450); RBC 4.21 m/uL (3.80-5.40); RDW 13.4 % (11.5-15.5); WBC 10.1 k/uL (3.8-10.6)
[2017-08-03 06:43] LABS: Calcium 9.5 mg/dL (8.4-10.2); Potassium 5.5 mmol/L (3.5-5.1)
[2017-08-03] MEDS: APIXABAN 5 MG TAB PO SCH (07:59)
[2017-08-03] MEDS: ATORVASTATIN 20 MG TAB PO SCH (07:59)
[2017-08-03] MEDS ORDERED: ASPIRIN 81 MG PO SCH (09:00)
[2017-08-03] MEDS ORDERED: METOPROLOL SUCCINATE (ER) 50 MG TAB.ER.24H PO SCH (09:00)
[2017-08-03 11:39] VITALS: BP 109/53; PULSE 63; RESP 16; TEMP 97.6
--- NOTE | 2017-08-03 14:02 | P.PN ---
Subjective Progress Note Date: 08/03/17 This pleasant 77-year-old female with history of hypertension and hyperlipidemia, who presented to her primary care doctor's office with flulike symptoms. She was found to be in atrial fibrillation with rapid ventricular response and hence was admitted to the hospital. EKG on admission here showed atrial flutter with 2 to one conduction. She continues to be in atrial flutter with a heart rate up in the 130s this morning. She was initiated on oral Cardizem by her primary care doctor. We will also give her one additional dose of beta nav this morning. If patient persists to have a rapid heartbeat we may consider the addition of amiodarone to her medication regime. She has also been approved for Eliquis. 07-29-2017 Patient was seen and examined this morning, continues to be in atrial flutter with a heart rate in the 130s to 140s. We will discontinue the by mouth Cardizem and initiate IV amiodarone per protocol. Blood pressure 132/60, heart rate in the 130s to 140s range. Sodium 145, potassium 4.4, BUN 21, creatinine 0.9. 07/30/2017 Patient was seen and examined this morning, continues to be in atrial flutter with a heart rate in the 120s to 130s. Is still on an amiodarone drip which we will cover operator to oral. A request was made for Dr. Lopez to see the patient regarding possible atrial flutter ablation. He did come to see her in consult, and has recommended to have a atrial flutter ablation performed on . We will continue current dose of Eliquis, she will also receive a dose at 5 AM the morning of the procedure. The patient has been up ambulating in the hallway, H that she feels short of breath with activity, denies palpitations. 08/01/2017 Patient seen and examined this morning, continues to be in atrial flutter with a heart rate of 120. Scheduled to undergo atrial flutter ablation tomorrow with Dr. Fonseca. 08/03/2017 Patient underwent typical atrial flutter ablation yesterday. He and examined this morning, up ambulating in the baum most of the morning. Denies any shortness of breath, no chest discomfort. Continues to be in normal sinus rhythm. Patient will be discharged home today on Eliquis 5 mg one tablet by mouth twice a day, Ecotrin 81 mg daily, Lipitor 20 mg daily, Toprol 50 mg daily. A follow-up appointment will be made with Dr. Dasilva and Dr Fonseca in the office. Objective - Vital Signs Vital signs: Vital Signs Temp 97.6 F 08/03/17 11:38 Pulse 63 08/03/17 11:38 Resp 16 08/03/17 11:38 BP 109/53 08/03/17 11:38 Pulse Ox 96 08/03/17 11:38 Intake & Output 08/02/17 08/03/17 08/03/17 18:59 06:59 18:59 Intake Total 1250 720 240 Output Total 300 Balance 950 720 240 Weight 84.5 kg Intake: IV 670 Intake, IV Titration 150 Amount Lactated Ringers 1,000 ml 150 @ 20 mls/hr IV .Q24H [facility] Rx#:[id number] Oral 430 720 240 Output: Urine 300 Other: Voiding Method Toilet Toilet Toilet # Voids 1 2 - Exam PHYSICAL EXAMINATION: HEENT: Head is atraumatic, normocephalic. Pupils equal, round. Neck is supple. There is no elevated jugular venous pressure. HEART EXAMINATION: Heart S1 and S2 normal CHEST EXAMINATION: Lungs are clear to auscultation and precussion. No chest wall tenderness is noted on palpation or with deep breathing. ABDOMEN: Soft, nontender. Bowel sounds are heard. No organomegaly noted. Right and left groins soft, no hematoma. EXTREMITIES: 2+ peripheral pulses with no evidence of peripheral edema and no calf tenderness noted. NEUROLOGIC patient is awake, alert and oriented -3. . - Labs CBC & Chem 7: 08/03/17 05:28 08/03/17 05:28 Labs: Abnormal Lab Results - Last 24 Hours (Table) 08/03/17 Range/Units 05:28 Potassium 5.5 H (3.5-5.1) mmol/L Carbon Dioxide 31 H (22-30) mmol/L BUN 20 H (7-17) mg/dL Creatinine 1.22 H (0.52-1.04) mg/dL Glucose 111 H (74-99) mg/dL Assessment and Plan Plan: Assessment and plan #1 typical atrial flutter with rapid ventricular response, status post ablation. #2 persistent atrial fibrillation #3 hyperlipidemia #4 hypertension Plan From cardiology's perspective, we will continue the patient on her current medications. She may be able to be discharged home, we'll make her a follow-up appointment to see Dr. Dasilva and Dr. Fonseca in the office post discharge. DNP note has been reviewed, I agree with a documented findings and plan of care. Patient was seen and examined.
== END 2017-08-03 13:19 | disposition home or self-care (01) | DRG 273 ==
LOC: EC 15:41 → 6SEL 16:33
PROVIDERS: ADMIT Internal Medicine; ATTEND Internal Medicine
PROC: 02583ZZ Destruction of Conduction Mechanism, Percutaneous Approach (ICD-10-PCS; principal; 2017-08-02 08:15)
PROC: 02K83ZZ Map Conduction Mechanism, Percutaneous Approach (ICD-10-PCS; principal; 2017-08-02 08:15)
PROC: 4A023FZ Measurement of Cardiac Rhythm, Percutaneous Approach (ICD-10-PCS; principal; 2017-08-02 08:15)
PROC: 4A0234Z Measurement of Cardiac Electrical Activity, Percutaneous Approach (ICD-10-PCS; principal; 2017-08-02 08:15)
DX: I48.3 Typical atrial flutter (principal); I50.31 Acute diastolic (congestive) heart failure; I27.20 Pulmonary hypertension, unspecified; I08.3 Combined rheumatic disorders of mitral, aortic and tricuspid valves; I49.5 Sick sinus syndrome; I11.0 Hypertensive heart disease with heart failure; E78.00 Pure hypercholesterolemia, unspecified; I48.1 Persistent atrial fibrillation; I65.29 Occlusion and stenosis of unspecified carotid artery; J44.9 Chronic obstructive pulmonary disease, unspecified; K21.9 Gastro-esophageal reflux disease without esophagitis; L40.9 Psoriasis, unspecified; Z79.01 Long term (current) use of anticoagulants; Z79.82 Long term (current) use of aspirin; Z79.899 Other long term (current) drug therapy; Z80.3 Family history of malignant neoplasm of breast; Z82.49 Family history of ischemic heart disease and other diseases of the circulatory system; Z87.891 Personal history of nicotine dependence; Z82.3 Family history of stroke
CPT/HCPCS: 36415; 71046; 80048; 80053; 80061; 81001; 82550; 82553; 83735; 83880; 84100; 84443; 84484; 85025; 85027; 85049; 85347; 85610; 85730; 87502; 93005; 93306; 93613; 93623; 93656; 93662; 96365; 96366; 96368; 96376; 99291

== ENCOUNTER → 2018-02-23 | Outpatient (CLI) | payer MEDICARE ==
--- NOTE | 2018-02-28 11:12 | MM ---
Reason for exam: screening (asymptomatic). Last mammogram was performed 1 year and 1 month ago. History: Patient is postmenopausal. Family history of breast cancer in daughter at age 58, premenopausal breast cancer in sister at age 50, and premenopausal breast cancer in mother at age 50. Took estrogen for 10 years beginning at age 55. Physical Findings: A clinical breast exam by your physician is recommended on an annual basis and results should be correlated with mammographic findings. MG Screening Mammo w CAD Bilateral CC and MLO view(s) were taken. Prior study comparison: January 19, 2017, bilateral MG screening mammo w CAD. January 15, 2016, bilateral MG screening mammo w CAD. There are scattered fibroglandular densities. Scattered benign oil cyst calcifications. No significant changes when compared with prior studies. ASSESSMENT: Negative, BI-RAD 1 RECOMMENDATION: Routine screening mammogram of both breasts in 1 year.
== END | disposition home or self-care (01) ==
LOC: RADMAMWWP 11:40
PROVIDERS: ATTEND Obstetrics & Gynecology
DX: Z12.31 Encounter for screening mammogram for malignant neoplasm of breast (principal)
CPT/HCPCS: 77067

== ENCOUNTER → 2018-11-28 | Outpatient (CLI) | payer MEDICARE ==
--- NOTE | 2018-11-29 07:51 | US ---
EXAMINATION TYPE: US carotid duplex BILAT DATE OF EXAM: 11/28/2018 COMPARISON: NONE CLINICAL HISTORY: I65.29 Carotid stenosis. Carotid stenosis EXAM MEASUREMENTS: RIGHT: Peak Systolic Velocity (PSV) cm/sec ----- Right CCA: 63.4 ----- Right ICA: 138.4 ----- Right ECA: 125.8 ICA/CCA ratio: 2.2 RIGHT: End Diastole cm/sec ----- Right CCA: 18.9 ----- Right ICA: 43.0 ----- Right ECA: 24.8 LEFT: Peak Systolic Velocity (PSV) cm/sec ----- Left CCA: 77.8 ----- Left ICA: 143.2 ----- Left ECA: 104.4 ICA/CCA ratio: 1.8 LEFT: End Diastole cm/sec ----- Left CCA: 21.6 ----- Left ICA: 23.6 ----- Left ECA: 15.5 VERTEBRALS (direction of flow): Right Vertebral: irregular flow Left Vertebral: Antegrade Rhythm: Normal Moderate to severe plaque bilateral bifurcations. Increased velocities right ICA and left ICA. Irregu lar waveform right vertebral IMPRESSION: 50-69% stenosis of the bilateral internal carotid arteries with incidental irregular john w in the right vertebral artery. CTA neck is recommended for more accurate assessment of degree of st enosis. Criteria for Assigning % of Stenosis / Diameter reduction (Estimation based on the indirect measurements of the internal carotid artery velocities (ICA PSV). 1. Normal (no stenosis)=ICA PSV < 125 cm/s: ratio < 2.0: ICA EDV<40 cm/s. 2. Less than 50% stenosis=ICA PSV < 125 cm/s: ratio < 2.0: ICA EDV<40 cm/s. 3. 50 to 69% stenosis=ICA PSV of 125 to 230 cm/s: ration 2.0 ? 4.0: ICA EDV 40-100 cm/s. 4. Greater than 70% stenosis to near occlusion= ICA PSV > 230 cm/s: ratio > 4.0: ICA EDV > 100 cm/s. 5. Near occlusion= ICA PSV velocities may be low or undetectable: variable ratio and ICA EDV. 6. Total occlusion=unable to detect flow.
--- NOTE | 2018-11-29 07:57 | US ---
EXAMINATION TYPE: US kidneys/renal and bladder DATE OF EXAM: 11/28/2018 COMPARISON: NONE CLINICAL HISTORY: N18.3 ckd. CKD EXAM MEASUREMENTS: Right Kidney: 10.5 x 3.3 x 4.1 cm Left Kidney: 9.0 x 5.0 x 4.8 cm Right Kidney: cystic area mid = 1.0 x 0.8 x 1.1cm Left Kidney: cystic area lateral = 0.9 x 0.7 x 0.8cm Bladder: appears wnl Bilateral Jets seen: yes There is no evidence for hydronephrosis at this point in time. No nephrolithiasis is seen. The urina ry bladder is anechoic. Bilateral ureteral jets are seen. No cortical thinning. Cortical medullary d ifferentiation is maintained currently. IMPRESSION: Bilateral appearing benign cortical renal cysts. No hydronephrosis or nephrolithiasis is seen within either kidney. No current sonographic sequela of this patient's known medical renal disease.
== END | disposition home or self-care (01) ==
LOC: RADUSWWP 17:02
PROVIDERS: ATTEND Internal Medicine
DX: N28.1 Cyst of kidney, acquired (principal); N18.3 Chronic kidney disease, stage 3 (moderate); I65.23 Occlusion and stenosis of bilateral carotid arteries
CPT/HCPCS: 76770; 93880

== ENCOUNTER → 2019-03-22 | Outpatient (CLI) | payer MEDICARE ==
--- NOTE | 2019-03-22 14:48 | BD ---
EXAMINATION TYPE: Axial Bone Density DATE OF EXAM: 03/22/2019 COMPARISON: 2004 CLINICAL HISTORY: N 95.1 Height: 63 inches Weight: 180 pounds FRAX RISK QUESTIONS: Alcohol (3 or more units per day): no Family History (Parent hip fracture): no Glucocorticoids (More than 3mos): no (Ex: prednisone, prednisolone, methylprednisolone, dexamethasone, and hydrocortisone). History of Fracture in Adulthood: no Secondary Osteoporosis: 1. Type 1 Diabetes: no 2. Hyperthyroidism: no 3. Menopause before 45: no 4. Malnutrition: no 5. Chronic liver disease: no Rheumatoid Arthritis: no Current Tobacco Use: no RISK FACTORS HISTORY OF: Family History of Osteoporosis: no Active: no Diet low in dairy products/other sources of calcium: no Postmenopausal woman: yes Take estrogen and/or progesterone medications: not now How long: age [age] Lost more than 2 inches in height since high school: no Frequent falls: no Poor Health: no Hyperparathyroidism: no Adrenal Insufficiency: no MEDICATIONS: Prednisone or other steroids: no Thyroid Medications:no Osteoporosis Medications: no Additional Medications: blood pressure med, cholesterol med, calcium, vitamin D Additional History: EXAM MEASUREMENTS: Bone mineral densitometry was performed using the [employer] System. Bone mineral density as measured about the Lumbar spine is: ----- L1-L4(G/cm2): 1.370 T Score Values are as follows: ----- L2: 2.2 ----- L3: 1.5 ----- L4: 0.9 ----- L1-L4: 1.6 Bone mineral density has: Increased 11.8% since study of: 08/25/2004 Bone mineral density about the R hip (g/cm2): 1.071 Bone mineral density about the L hip (g/cm2): 1.071 T Score values are as follows: -----R Neck: 0.2 -----L Neck: 0.2 -----R Total: 0.7 -----L Total: 1.2 Bone mineral density has: Increased 2.5% since study of: 08/25/2004 IMPRESSION: Normal (Values between +1 and -1 indicate normal bone mass). Consider repeating this study in 5 year s or sooner if there is some new clinical indication. NOTE: T-SCORE=SD OF THE YOUNG ADULT MEAN.
--- NOTE | 2019-03-26 10:19 | MM ---
Reason for exam: screening (asymptomatic). Last mammogram was performed 1 year and 1 month ago. History: Patient is postmenopausal. Family history of breast cancer in daughter at age 58, premenopausal breast cancer in sister at age 50, and premenopausal breast cancer in mother at age 50. Took hormonal contraceptives for 13 years. Took estrogen for 10 years beginning at age 55. Physical Findings: A clinical breast exam by your physician is recommended on an annual basis and results should be correlated with mammographic findings. MG 3D Screening Mammo W/Cad Bilateral CC and MLO view(s) were taken. Prior study comparison: February 23, 2018, bilateral MG screening mammo w CAD. January 19, 2017, bilateral MG screening mammo w CAD. There are scattered fibroglandular densities. No significant changes when compared with prior studies. ASSESSMENT: Benign, BI-RAD 2 RECOMMENDATION: Routine screening mammogram of both breasts in 1 year.
== END | disposition home or self-care (01) ==
LOC: RADMAMWWP 13:01
PROVIDERS: ATTEND Obstetrics & Gynecology
DX: Z12.31 Encounter for screening mammogram for malignant neoplasm of breast (principal); N95.1 Menopausal and female climacteric states
CPT/HCPCS: 77063; 77067; 77080

== ENCOUNTER → 2019-12-27 | Outpatient (CLI) | payer MEDICARE ==
--- NOTE | 2019-12-27 09:31 | US ---
EXAMINATION TYPE: US duplex aorta DATE OF EXAM: 12/27/2019 COMPARISON: NONE CLINICAL HISTORY: 79-year-old female I71.4 Abdominal aortic aneurysm, without rupture. Pt states poss ible AAA seen on xray at outside facility TECHNIQUE: Multiple sonographic images of the abdominal aorta are obtained. FINDINGS: EXAM MEASUREMENTS: Abdominal Aorta: Proximal: 2.2 x 2.0 cm Mid: 1.8 x 1.7 cm Distal: 2.9 x 2.4 cm Bifurcation: Unable to visualize due to overlying bowel gas Distal aorta <3cm, however measures upper limits near 3cm IMPRESSION: Fusiform ectasia, borderline aneurysm of the distal abdominal aorta at 2.9 cm.
== END | disposition home or self-care (01) ==
LOC: RADUSWWP 07:23
PROVIDERS: ATTEND Internal Medicine
DX: I71.4 Abdominal aortic aneurysm, without rupture (principal)
CPT/HCPCS: 93979

== ENCOUNTER → 2020-04-30 | Outpatient (CLI) | payer MEDICARE ==
[2020-04-30 16:23] LABS: Phosphorus 4.5 mg/dL (2.5-4.5)
[2020-05-01 10:16] LABS: Free Kappa Lt Chain Qnt, Serum 2.55 mg/dL (0.33-1.94)
--- NOTE | 2020-05-02 13:44 | MM ---
Reason for exam: screening (asymptomatic). Last mammogram was performed 1 year and 1 month ago. History: Patient is postmenopausal. Family history of breast cancer in daughter at age 58, premenopausal breast cancer in sister at age 50, and premenopausal breast cancer in mother at age 50. Took hormonal contraceptives for 13 years. Took estrogen for 10 years beginning at age 55. Physical Findings: A clinical breast exam by your physician is recommended on an annual basis and results should be correlated with mammographic findings. MG 3D Screening Mammo W/Cad Bilateral CC and MLO view(s) were taken. Prior study comparison: March 22, 2019, bilateral MG 3d screening mammo w/cad. February 23, 2018, bilateral MG screening mammo w CAD. There are scattered fibroglandular densities. Benign oil cyst calcifications. No significant changes when compared with prior studies. ASSESSMENT: Negative, BI-RAD 1 RECOMMENDATION: Routine screening mammogram of both breasts in 1 year.
== END | disposition home or self-care (01) ==
LOC: RADMAMWWP 14:20
PROVIDERS: ATTEND Obstetrics & Gynecology
DX: Z12.31 Encounter for screening mammogram for malignant neoplasm of breast (principal); Z80.3 Family history of malignant neoplasm of breast; E83.52 Hypercalcemia
CPT/HCPCS: 36415; 77063; 77067; 82306; 83883; 83970; 84100

== ENCOUNTER → 2021-05-05 | Outpatient (CLI) | payer MEDICARE ==
--- NOTE | 2021-05-07 08:58 | MM ---
Reason for exam: screening (asymptomatic). Last mammogram was performed 1 year ago. History: Patient is postmenopausal. Family history of breast cancer in daughter at age 58 and premenopausal breast cancer in mother at age 50. Took hormonal contraceptives for 13 years. Took estrogen for 10 years beginning at age 55. Physical Findings: A clinical breast exam by your physician is recommended on an annual basis and results should be correlated with mammographic findings. MG 3D Screening Mammo W/Cad Bilateral CC and MLO view(s) were taken. Prior study comparison: April 30, 2020, bilateral MG 3d screening mammo w/cad. March 22, 2019, bilateral MG 3d screening mammo w/cad. There are scattered fibroglandular densities. No significant changes when compared with prior studies. ASSESSMENT: Benign, BI-RAD 2 RECOMMENDATION: Routine screening mammogram of both breasts in 1 year.
== END | disposition home or self-care (01) ==
LOC: RADMAMWWP 08:55
PROVIDERS: ATTEND Obstetrics & Gynecology
DX: Z12.31 Encounter for screening mammogram for malignant neoplasm of breast (principal); Z80.3 Family history of malignant neoplasm of breast
CPT/HCPCS: 77063; 77067

== ENCOUNTER → 2021-05-26 | Outpatient (CLI) | payer MEDICARE ==
--- NOTE | 2021-05-26 16:25 | US ---
EXAMINATION TYPE: US carotid duplex BILAT DATE OF EXAM: 05/26/2021 COMPARISON: NONE CLINICAL HISTORY: I65.29 CAROTID STENOSIS. no stroke, no symptoms, high cholesterol and h/o heart abl ation EXAM MEASUREMENTS: RIGHT: Peak Systolic Velocity (PSV) cm/sec ----- Right CCA: 75.4 ----- Right ICA: 236 ----- Right ECA: 159 ICA/CCA ratio: 3.1 RIGHT: End Diastole cm/sec ----- Right CCA: 13.9 ----- Right ICA: 40.3 ----- Right ECA: 21.8 LEFT: Peak Systolic Velocity (PSV) cm/sec ----- Left CCA: 103 ----- Left ICA: 156 ----- Left ECA: 154 ICA/CCA ratio: 1.5 LEFT: End Diastole cm/sec ----- Left CCA: 19.9 ----- Left ICA: 156 ----- Left ECA: 154 VERTEBRALS (direction of flow): Right Vertebral: Antegrade Left Vertebral: Antegrade Rhythm: Normal Heterogeneous plaque with stenosis seen on the right proximal ICA IMPRESSION: 1. Severe stenosis right internal carotid artery, greater than 70%. 2. Moderate stenosis left internal carotid artery between 50 and 69%. Criteria for Assigning % of Stenosis / Diameter reduction (Estimation based on the indirect measurements of the internal carotid artery velocities (ICA PSV). 1. Normal (no stenosis)=ICA PSV < 125 cm/s: ratio < 2.0: ICA EDV<40 cm/s. 2. Less than 50% stenosis=ICA PSV < 125 cm/s: ratio < 2.0: ICA EDV<40 cm/s. 3. 50 to 69% stenosis=ICA PSV of 125 to 230 cm/s: ration 2.0 ? 4.0: ICA EDV 40-100 cm/s. 4. Greater than 70% stenosis to near occlusion= ICA PSV > 230 cm/s: ratio > 4.0: ICA EDV > 100 cm/s. 5. Near occlusion= ICA PSV velocities may be low or undetectable: variable ratio and ICA EDV. 6. Total occlusion=unable to detect flow.
--- NOTE | 2021-05-26 16:56 | US ---
EXAMINATION TYPE: US abdomen complete DATE OF EXAM: 05/26/2021 COMPARISON: NONE CLINICAL HISTORY: R74.8 ELEV LIVER ENZYMES. no symptoms, abn labs EXAM MEASUREMENTS: Liver Length: 16.8 cm Gallbladder Wall: 0.2 cm CBD: 0.6 cm Spleen: 9.3 cm Right Kidney: 9.8 x 4.0 x 4.2 cm Left Kidney: 8.6 x 4.2 x 5.3 cm Pancreas: wnl Liver: heterogeneous Gallbladder: wnl Evidence for sonographic Matamoros's sign: no CBD: wnl Spleen: wnl Right Kidney: wnl Left Kidney: small in size Upper IVC: wnl Abd Aorta: wnl IMPRESSION: 1. Normal abdomen ultrasound
== END | disposition home or self-care (01) ==
LOC: RADUSWWP 06:58
PROVIDERS: ATTEND Internal Medicine
DX: I65.29 Occlusion and stenosis of unspecified carotid artery (principal); R74.8 Abnormal levels of other serum enzymes
CPT/HCPCS: 76700; 93880

== ENCOUNTER → 2021-08-27 | Outpatient (CLI) | payer MEDICARE ==
[~2021-08-27] MED LIST: REGADENOSON 0.4 MG/5 ML SYRINGE IV PRN
--- NOTE | 2021-08-27 10:35 | P.STRESS ---
- Stress Test Note Stress Test Results/Findings: Exam Performed: NM stress lexiscan cardiolite Exam Date: 08/27/21 Reason for Exam: CAD, HYPERCALCEMIA Height: 5 ft 3 in Weight: 83.2 kg Protocol: LEXISCAN Stage: NA Duration of Exercise: 5 MINUTE INFUSION TI Resting Heart Rate: 129 Resting Blood Pressure: 140/70 Maximum Achieved Heart Rate: 139 Maximum Achieved Blood Pressure: 140/70 85% PMHR: 118 100% PMHR: 139 METS: NA Technologist Comment: Stress Test Results/Findings: This is a 81-year-old female with history of hypertension, hypercholesteremia smoking history, being evaluated for palpitations and coronary artery disease. Stress data: Baseline EKG showed atrial fibrillation with the rapid ventricular response with heart rate of 129. Blood pressure at rest is 140/70. A standard dose of Lexiscan was infused. EKGs taken during and after infusion did not reveal any significant changes from the baseline. Final impression: #1. Negative Lexiscan stress test #2. Report on the nuclear images to be provided by the radiologist
--- NOTE | 2021-08-27 13:05 | NM ---
EXAMINATION TYPE: NM stress lexiscan cardiolite DATE OF EXAM: 08/27/2021 COMPARISON: NONE HISTORY: I 25.1 TECHNIQUE: After the intravenous administration of 9.47 mCi Tc 99m Sestamibi - Cardiolite resting SP ECT images acquired 45 minutes post injection. The patient received 0.4mg Lexiscan, 26.2 mCi Tc 99m Sestamibi - Stress images obtained [address] injection FINDINGS: Review of stress and rest SPECT images demonstrates decreased uptake in the inferolateral left ventri cornell more so on stress than on rest images. Gated analysis shows normal wall motion with an estimated left ventricular ejection fraction of 48 %. 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 A Yellow level critical message alert has been initiated for Garry Hebert MD via the [employer] Critical Results System on 08/27/2021 1:02 PM. This message alert has been sent to Garry Hebert MD via the preferences provided by the clinician for the receipt of Radiology Critical Findings. Message ID [id number].
== END | disposition home or self-care (01) ==
LOC: RADNMMAIN 07:47
PROVIDERS: ATTEND Internal Medicine
DX: I25.10 Atherosclerotic heart disease of native coronary artery without angina pectoris (principal); E83.52 Hypercalcemia
CPT/HCPCS: 93017; 78452; A9500; J2785

== ENCOUNTER 2021-09-10 06:15 | Day surgery (SDC) | payer MEDICARE ==
[2021-09-09 09:24] VITALS: BMI 32.2
[2021-09-10] MEDS ORDERED: SODIUM CHLORIDE 0.9% 500 ML 500 ML IV ONE (06:40)
[2021-09-10 06:52] VITALS: RESP 16; TEMP 97.8
[2021-09-10] MEDS ORDERED: fentaNYL (PF) 50 MCG/ML 2 ML AMP ONE (07:29)
[2021-09-10] MEDS ORDERED: BENZOCAINE SPRAY 1 CAN TOPICAL ONE ×3 (07:32→07:45)
[2021-09-10] MEDS ORDERED: MIDAZOLAM 2 MG/2 ML VIAL IV ONE ×2 (07:42→07:44)
[2021-09-10] MEDS ORDERED: fentaNYL (PF) 50 MCG/ML 2 ML AMP IV ONE ×2 (07:42→07:45)
--- NOTE | 2021-09-10 08:42 | ECHOT ---
TRANSESOPHAGEAL ECHOCARDIOGRAM INDICATION: Aortic stenosis and regurgitation. PROCEDURE NOTE: After obtaining informed consent, transesophageal echocardiogram was performed in left lateral position using an Omniplane probe. Local and IV sedation were given with xylocaine spray, intravenous Versed and fentanyl. The patient tolerated the procedure well without any obvious immediate complications. Total sedation time was 10 minutes. Color Doppler, 2D, M-mode and spectral analysis were performed. FINDINGS: 1. Aortic valve is a 3-leaflet valve. It appears calcified with restricted leaflet mobility. By planimetry the valve area is around 1.3 cm2, consistent with mild to moderate aortic stenosis. There is moderate aortic regurgitation noted. 2. Mitral valve shows moderate mitral regurgitation. 3. There is mild to moderate tricuspid regurgitation. 4. Left ventricle has normal size and systolic function. 5. Left atrium appears severely enlarged. 6. Right atrium appears mildly enlarged. 7. Aorta shows moderate atherosclerotic changes. Aortic root measures normally. 8. Interatrial septum appears aneurysmally dilated. There is no evidence of left-to- right shunt by color-flow Doppler or [id number] shunt by agitated saline contrast study. CONCLUSIONS: 1. Moderate aortic regurgitation with mild to moderate aortic stenosis. 2. Normal LV function. 3. Severe left atrial enlargement. 4. Aneurysmal dilatation of the interatrial septum. MMODL / IJN: [id number] /
[2021-09-10 09:34] VITALS: BP 100/52; PULSE 58
== END 2021-09-10 09:33 | disposition home or self-care (01) ==
LOC: CATHCVL 06:15
PROVIDERS: ATTEND Internal Medicine Cardiovascular Disease
DX: I08.3 Combined rheumatic disorders of mitral, aortic and tricuspid valves (principal); I25.10 Atherosclerotic heart disease of native coronary artery without angina pectoris; I10 Essential (primary) hypertension; E78.2 Mixed hyperlipidemia; Z72.0 Tobacco use; Z90.721 Acquired absence of ovaries, unilateral; M19.90 Unspecified osteoarthritis, unspecified site; Z87.891 Personal history of nicotine dependence; I48.3 Typical atrial flutter; Z79.82 Long term (current) use of aspirin; Z79.899 Other long term (current) drug therapy
CPT/HCPCS: 93312; 93320; 93325; J2250; J3010

== ENCOUNTER → 2021-12-22 | Outpatient (CLI) | payer MEDICARE ==
--- NOTE | 2021-12-22 14:27 | XR ---
EXAMINATION TYPE: XR chest 2V DATE OF EXAM: 12/22/2021 COMPARISON: NONE HISTORY: Shortness of breath FINDINGS: There are bilateral pleural effusions with cardiomegaly and bibasilar infiltrate. There is a diffuse interstitial pattern. Postsurgical changes. No pneumothorax. IMPRESSION: 1. Correlate for CHF otherwise consider pneumonia.
[2021-12-22 15:11] LABS: Basophils # (A) 0.1 k/uL (0-0.2); Basophils % (A) 1 %; Eosinophils # (A) 0.3 k/uL (0-0.7); Eosinophils % (A) 3 %; HCT 33.9 % (34.0-46.0); HGB 10.3 gm/dL (11.4-16.0); Hypochromasia Marked; Lymphocytes # (A) 1.8 k/uL (1.0-4.8); Lymphocytes % (A) 17 %; MCH 31.4 pg (25.0-35.0); MCHC 30.4 g/dL (31.0-37.0); MCV 103.3 fL (80.0-100.0); Macrocytosis Moderate; Mean Platelet Volume 7.8; Monocytes # (A) 0.6 k/uL (0-1.0); Monocytes % (A) 6 %; Neutrophils # (A) 7.8 k/uL (1.3-7.7); Neutrophils % (A) 73 %; Platelet Count 305 k/uL (150-450); RBC 3.28 m/uL (3.80-5.40); RDW 15.7 % (11.5-15.5); WBC 10.8 k/uL (3.8-10.6)
[2021-12-22 15:19] LABS: ALT 61 U/L (4-34); AST 71 U/L (14-36); African American GFR (CKD) 38 (>60 ml/min/1.73 sqM); Albumin 3.3 g/dL (3.5-5.0); Albumin/Globulin Ratio 0.9; Alkaline Phosphatase 273 U/L (38-126); Anion Gap 9 mmol/L; Blood Urea Nitrogen 44 mg/dL (7-17); Calcium 8.7 mg/dL (8.4-10.2); Carbon Dioxide 28 mmol/L (22-30); Chloride 103 mmol/L (98-107); Globulin 3.6 g/dL; Glucose 94 mg/dL (74-99); Magnesium 1.8 mg/dL (1.6-2.3); Non-African American GFR(CKD) 33 (>60 ml/min/1.73 sqM); Potassium 4.9 mmol/L (3.5-5.1); Sodium 140 mmol/L (137-145); Total Bilirubin 0.4 mg/dL (0.2-1.3); Total Protein 6.9 g/dL (6.3-8.2)
[2021-12-22 15:35] LABS: T4, Free (Free Thyroxine) 1.12 ng/dL (0.78-2.19)
[2021-12-23 04:59] LABS: Chol/HDL Ratio 2.49 Ratio; LDL Cholesterol,Calculated 29.6 mg/dL (0.0-131.0)
== END | disposition home or self-care (01) ==
LOC: RADXRMAIN 13:56
PROVIDERS: ATTEND Internal Medicine
DX: I50.32 Chronic diastolic (congestive) heart failure (principal); I10 Essential (primary) hypertension; E78.2 Mixed hyperlipidemia; I51.7 Cardiomegaly
CPT/HCPCS: 71046; 80053; 80061; 83036; 83735; 83880; 84439; 84443; 84484; 85025

== ENCOUNTER 2022-02-01 11:41 | Emergency (ER) | payer MEDICARE ==
[2022-02-01] MEDS ORDERED: SODIUM CHLORIDE 0.9% 500 ML 500 ML IV STA (11:57)
[2022-02-01] MEDS ORDERED: HYDROmorphone 1 MG/ML 1 ML SYRINGE IVP STA (11:57)
--- NOTE | 2022-02-01 12:21 | XR ---
EXAMINATION TYPE: XR chest 1V portable DATE OF EXAM: 02/01/2022 COMPARISON: 12/22/2021 HISTORY: Shortness of breath FINDINGS: There are bilateral pleural effusions with cardiomegaly and bibasilar infiltrate. There is a diffuse interstitial pattern. Postoperative change. IMPRESSION: 1. Diffuse pleural parenchymal changes most typical CHF correlate clinically. Underlying infiltrate n ot excluded.
--- NOTE | 2022-02-01 12:26 | ED ---
Abdominal Pain HPI - General Chief Complaint: Abdominal Pain Stated Complaint: AFib Time Seen by Provider: 02/01/22 11:45 Source: patient, EMS Mode of arrival: EMS Limitations: no limitations - History of Present Illness Initial Comments: 82-year-old female with past medical history of coronary artery disease status post bypass surgery in October, hypertension, hyperlipidemia, CHF, A. fib presents emergency Department with elevated heart rate. States that last night she felt mildly constipated. She did take some laxatives and had a bowel movement. She woke this morning and was attempting to go to her scheduled primary care appointment with Dr. Hebert. She had sudden onset around 8:30 of intense generalized abdominal pain. When she showed up in Dr. Hebert office she had low blood pressure, heart rate of 140s and was in A. fib with RVR. States that she will wear 2-3 L of oxygen because of her history of CHF however oxygen was notably 79% on room air. She denies any chest pain. Denies ripping or tearing sensation to her back. Denies any issues with her bladder function to include hematuria, dysuria or difficult voiding. Patient does have chronic lower extremity edema since her bypass surgery. Also has a persistent anterior sternotomy defect that requires dressing daily. Bypass surgery was performed at [facility]. No other alleviating, precipitating or modifying factors - Related Data Home Medications Medication Instructions Recorded Confirmed Albuterol Sulfate [Albuterol 2 puff INHALATION RT-Q4H PRN 02/01/22 02/01/22 Sulfate Hfa] Atorvastatin [Lipitor] 80 mg PO HS 02/01/22 02/01/22 Furosemide [Lasix] 40 mg PO BID@0900,1600 02/01/22 02/01/22 Metoprolol Tartrate [Lopressor] 50 mg PO BID 02/01/22 02/01/22 Multivitamins, Thera [Multivitamin 1 tab PO DAILY 02/01/22 02/01/22 (formulary)] Spironolactone [Aldactone] 12.5 mg PO DAILY 02/01/22 02/01/22 icosapent ethyL [Icosapent Ethyl] 2 gm PO BID 02/01/22 02/01/22 Previous Rx's Medication Instructions Recorded Aspirin 81 mg PO DAILY chew 08/03/17 Allergies Allergy/AdvReac Type Severity Reaction Status Date / Time No Known Allergies Allergy Verified 02/01/22 13:20 Review of Systems ROS Statement: Those systems with pertinent positive or pertinent negative responses have been documented in the HPI. ROS Other: All systems not noted in ROS Statement are negative. Past Medical History Past Medical History: Coronary Artery Disease (CAD), GERD/Reflux, Hyperlipidemia, Hypertension, Skin Disorder Additional Past Medical History / Comment(s): See Dr Dasilva's H&P. Psoriasis. History of Any Multi-Drug Resistant Organisms: None Reported Additional Past Surgical History / Comment(s): COLONOSCOPY, OVARY REMOVED. Past Anesthesia/Blood Transfusion Reactions: No Reported Reaction Past Psychological History: No Psychological Hx Reported Smoking Status: Former smoker Past Alcohol Use History: Rare Past Drug Use History: None Reported - Past Family History Mother Family Medical History: Cancer Additional Family Medical History / Comment(s): Breast cancer. Daughter(s) Family Medical History: Cancer Additional Family Medical History / Comment(s): One daughter had kidney cancer, 2nd daughter had breast cancer. Sister(s) Family Medical History: Cancer Additional Family Medical History / Comment(s): BREAST CANCER and Brain Cancer. Father Family Medical History: Coronary Artery Disease (CAD) General Exam Limitations: no limitations General appearance: alert, in no apparent distress Head exam: Present: atraumatic, normocephalic, normal inspection Eye exam: Present: normal appearance, PERRL, EOMI. Absent: scleral icterus, conjunctival injection, periorbital swelling ENT exam: Present: normal exam, mucous membranes moist Respiratory exam: Present: rales, decreased breath sounds Cardiovascular Exam: Present: tachycardia, irregular rhythm, other (Patient has an anterior sternal wound/defect. active drainage) GI/Abdominal exam: Present: soft, distended, normal bowel sounds. Absent: pulsatile mass, hernia Extremities exam: Present: full ROM, tenderness, pedal edema Back exam: Present: normal inspection Neurological exam: Present: alert, oriented X3, CN II-XII intact Psychiatric exam: Present: normal affect, normal mood Skin exam: Present: warm, diaphoretic Course Vital Signs 02/01/22 02/01/22 02/01/22 11:45 12:15 12:30 Temperature 97.5 F L Pulse Rate 146 H 144 H 93 Respiratory 22 24 24 Rate Blood Pressure 129/85 131/82 140/57 O2 Sat by Pulse 79 L 96 97 Oximetry 02/01/22 02/01/22 02/01/22 13:04 13:35 14:00 Temperature Pulse Rate 149 H 140 H 124 H Respiratory 24 20 24 Rate Blood Pressure 127/88 128/98 119/56 O2 Sat by Pulse 97 96 96 Oximetry 02/01/22 02/01/22 02/01/22 14:15 14:30 14:40 Temperature Pulse Rate 142 H 144 H 147 H Respiratory 24 24 24 Rate Blood Pressure 105/82 123/86 106/55 O2 Sat by Pulse 96 96 96 Oximetry 02/01/22 02/01/22 02/01/22 15:00 15:10 15:20 Temperature Pulse Rate 115 H 113 H 129 H Respiratory 24 24 24 Rate Blood Pressure 106/48 99/63 109/54 O2 Sat by Pulse 96 95 95 Oximetry 02/01/22 02/01/22 02/01/22 16:00 16:30 17:30 Temperature Pulse Rate 138 H 134 H 130 H Respiratory 16 24 24 Rate Blood Pressure 112/57 102/69 111/47 O2 Sat by Pulse 96 96 96 Oximetry 02/01/22 18:00 Temperature 97.6 F Pulse Rate 128 H Respiratory 22 Rate Blood Pressure 91/52 O2 Sat by Pulse 96 Oximetry - Reevaluation(s) Reevaluation #1: Spoke with Dr. Baca. Agreeable to see the patient 02/01/22 1431 Reevaluation #2: Spoke with Dr. Hebert 02/01/22 1452 Medical Decision Making - Medical Decision Making Upon arrival patient was placed into room 2. A thorough history and physical exam was performed. He is hooked to continuous pulse ox and cardiac monitoring. 12-lead EKG is obtained which demonstrates possible a flutter. IV is established and laboratory studies were conducted. Patient was given a 10 mg bolus of Cardizem and started on 5 mg per hour. Laboratory studies reveal a creatinine of 1.1. Lactic acid 3.7. AST of 213. ALT 158. Alk phos of 249. Lipase 334. Chest x-ray is completed which demonstrates diffuse pleural parenchymal changes most typical of CHF. CT of the abdomen and pelvis is performed because of her reported abdominal pain which demonstrates postsurgical changes of the sternum with median sternotomy wires. Trace fluid and gas. Associated pneumoperitoneum. Small left and small to moderate right pleural effusions. Cirrhotic steatotic liver. Small low attenuation in the spleen which may represent a small splenic infarct. Gallbladder wall thickening. 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 Colonic diverticulosis without signs of diverticulitis. I did call and speak with the radiologist and informed him that the patient's surgery was done in October. Due to the timeline there is concern that the pneumoperitoneum may be because of a perforated vi scus. Patient was given 1 mg of Dilaudid and reevaluated. I am able to palpate her abdomen without any diffuse tenderness. Heart rate is evaluated and is improved however I did rebolus and increase the patient's Cardizem to 10 mg. I did provide the patient's a dose of Zosyn because of the pneumoperitoneum and concerns for cholecystitis. Color ultrasound is performed and awaiting results. I did call and speak with our on-call surgeon, Dr. Baca, in regards to the pneumoperitoneum and he originally agreed to see the patient. I also called and spoke with Dr. Hebert the hospitalist and Dr. Nagy the refinisher. Dr. Nagy and Dr. Baca do presents to the emergency department. I spoke with the patient and do feel that she should be transferred to [facility] where her previous surgeries were completed for continuity of care and higher-level of treatment. Patient was agreeable to this. Called and spoke with Dr. Salcido from [facility] who agreed to accept the patient. Even though the patient has pneumoperitoneum he did recommend heparinization due to A. fib, la ctic acidosis with concern for bowel and splenic infarct. Patient remained in stable condition awaiting transfer via [facility] - Lab Data Result diagrams: 02/01/22 12:00 02/01/22 12:00 Lab Results 02/01/22 02/01/22 02/01/22 Range/Units 12:00 12:00 12:00 WBC 5.3 (3.8-10.6) k/uL RBC 5.14 (3.80-5.40) m/uL Hgb 15.4 D (11.4-16.0) gm/dL Hct 47.8 H (34.0-46.0) % MCV 93.0 D (80.0-100.0) fL MCH 29.9 (25.0-35.0) pg MCHC 32.2 (31.0-37.0) g/dL RDW 15.0 (11.5-15.5) % Plt Count 414 (150-450) k/uL MPV 8.3 Neutrophils % 55 % Lymphocytes % 35 % Monocytes % 7 % Eosinophils % 1 % Basophils % 1 % Neutrophils # 2.9 (1.3-7.7) k/uL Lymphocytes # 1.8 (1.0-4.8) k/uL Monocytes # 0.4 (0-1.0) k/uL Eosinophils # 0.0 (0-0.7) k/uL Basophils # 0.1 (0-0.2) k/uL Manual Slide Review Performed Hypochromasia Slight PT 11.9 (9.0-12.0) sec INR 1.1 (<1.2) APTT 21.2 L (22.0-30.0) sec Sodium 137 (137-145) mmol/L Potassium 3.4 L (3.5-5.1) mmol/L Chloride 90 L (98-107) mmol/L Carbon Dioxide 37 H (22-30) mmol/L Anion Gap 10 mmol/L BUN 31 H (7-17) mg/dL Creatinine 1.16 H (0.52-1.04) mg/dL Est GFR (CKD-EPI)AfAm 51 (>60 ml/min/1.73 sqM) Est GFR (CKD-EPI)NonAf 44 (>60 ml/min/1.73 sqM) Glucose 178 H (74-99) mg/dL Lactic Ac Sepsis Rflx Plasma Lactic Acid Cedric (0.7-2.0) mmol/L Calcium 9.2 (8.4-10.2) mg/dL Total Bilirubin 0.6 (0.2-1.3) mg/dL AST 213 H (14-36) U/L ALT 158 H (4-34) U/L Alkaline Phosphatase 249 H (38-126) U/L Troponin I (0.000-0.034) ng/mL NT-Pro-B Natriuret Pep pg/mL Total Protein 8.1 (6.3-8.2) g/dL Albumin 3.6 (3.5-5.0) g/dL Lipase 334 H (23-300) U/L 02/01/22 02/01/22 02/01/22 Range/Units 12:00 12:00 12:00 WBC (3.8-10.6) k/uL RBC (3.80-5.40) m/uL Hgb (11.4-16.0) gm/dL Hct (34.0-46.0) % MCV (80.0-100.0) fL MCH (25.0-35.0) pg MCHC (31.0-37.0) g/dL RDW (11.5-15.5) % Plt Count (150-450) k/uL MPV Neutrophils % % Lymphocytes % % Monocytes % % Eosinophils % % Basophils % % Neutrophils # (1.3-7.7) k/uL Lymphocytes # (1.0-4.8) k/uL Monocytes # (0-1.0) k/uL Eosinophils # (0-0.7) k/uL Basophils # (0-0.2) k/uL Manual Slide Review Hypochromasia PT (9.0-12.0) sec INR (<1.2) APTT (22.0-30.0) sec Sodium (137-145) mmol/L Potassium (3.5-5.1) mmol/L Chloride (98-107) mmol/L Carbon Dioxide (22-30) mmol/L Anion Gap mmol/L BUN (7-17) mg/dL Creatinine (0.52-1.04) mg/dL Est GFR (CKD-EPI)AfAm (>60 ml/min/1.73 sqM) Est GFR (CKD-EPI)NonAf (>60 ml/min/1.73 sqM) Glucose (74-99) mg/dL Lactic Ac Sepsis Rflx Plasma Lactic Acid Cedric 3.7 H* (0.7-2.0) mmol/L Calcium (8.4-10.2) mg/dL Total Bilirubin (0.2-1.3) mg/dL AST (14-36) U/L ALT (4-34) U/L Alkaline Phosphatase (38-126) U/L Troponin I 0.032 (0.000-0.034) ng/mL NT-Pro-B Natriuret Pep 1880 pg/mL Total Protein (6.3-8.2) g/dL Albumin (3.5-5.0) g/dL Lipase (23-300) U/L 02/01/22 02/01/22 02/01/22 Range/Units 12:38 17:43 18:23 WBC (3.8-10.6) k/uL RBC (3.80-5.40) m/uL Hgb (11.4-16.0) gm/dL Hct (34.0-46.0) % MCV (80.0-100.0) fL MCH (25.0-35.0) pg MCHC (31.0-37.0) g/dL RDW (11.5-15.5) % Plt Count (150-450) k/uL MPV Neutrophils % % Lymphocytes % % Monocytes % % Eosinophils % % Basophils % % Neutrophils # (1.3-7.7) k/uL Lymphocytes # (1.0-4.8) k/uL Monocytes # (0-1.0) k/uL Eosinophils # (0-0.7) k/uL Basophils # (0-0.2) k/uL Manual Slide Review Hypochromasia PT (9.0-12.0) sec INR (<1.2) APTT (22.0-30.0) sec Sodium (137-145) mmol/L Potassium (3.5-5.1) mmol/L Chloride (98-107) mmol/L Carbon Dioxide (22-30) mmol/L Anion Gap mmol/L BUN (7-17) mg/dL Creatinine (0.52-1.04) mg/dL Est GFR (CKD-EPI)AfAm (>60 ml/min/1.73 sqM) Est GFR (CKD-EPI)NonAf (>60 ml/min/1.73 sqM) Glucose (74-99) mg/dL Lactic Ac Sepsis Rflx Y Y Plasma Lactic Acid Cedric 3.7 H* (0.7-2.0) mmol/L Calcium (8.4-10.2) mg/dL Total Bilirubin (0.2-1.3) mg/dL AST (14-36) U/L ALT (4-34) U/L Alkaline Phosphatase (38-126) U/L Troponin I (0.000-0.034) ng/mL NT-Pro-B Natriuret Pep pg/mL Total Protein (6.3-8.2) g/dL Albumin (3.5-5.0) g/dL Lipase (23-300) U/L - EKG Data EKG Comments: EKG done at 1145 demonstrates sinus tachycardia with significant baseline artifact. Rate of 156. NC interval 97. QRS of 89. QTC of 403. Possibility of a flutter. No acute ST segment elevations or depressions baseline artifact Critical Care Time Critical Care Time: Yes Critical Care Time: 40 minutes Disposition Clinical Impression: Atrial fibrillation with RVR, Abdominal pain, Pneumoperitoneum, Lactic acid acidosis, CHF exacerbation Disposition: OTHER INSTITUTION NOT DEFINED Condition: Serious Is patient prescribed a controlled substance at d/c from ED?: No Referrals: Garry Hebert MD [Primary Care Provider] - 1-2 days Time of Disposition: 14:52 Decision to Admit Reason: Admit from EC Decision Date: 02/01/22 Decision Time: 14:52 - Out of Hospital Transfer - Req. Specs Out of Hospital Transfer - Requested Specifics: Other Emergency Center ([facility]
[2022-02-01 12:28] LABS: Albumin 3.6 g/dL (3.5-5.0); Calcium 9.2 mg/dL (8.4-10.2); Potassium 3.4 mmol/L (3.5-5.1); Total Bilirubin 0.6 mg/dL (0.2-1.3); Total Protein 8.1 g/dL (6.3-8.2)
[2022-02-01 12:48] LABS: INR 1.1 (<1.2); Prothrombin Time 11.9 sec (9.0-12.0)
[2022-02-01 12:49] LABS: Basophils # (A) 0.1 k/uL (0-0.2); Basophils % (A) 1 %; Eosinophils % (A) 1 %; HCT 47.8 % (34.0-46.0); Hypochromasia Slight; Lymphocytes # (A) 1.8 k/uL (1.0-4.8); Lymphocytes % (A) 35 %; MCH 29.9 pg (25.0-35.0); MCHC 32.2 g/dL (31.0-37.0); Mean Platelet Volume 8.3; Monocytes # (A) 0.4 k/uL (0-1.0); Monocytes % (A) 7 %; Neutrophils # (A) 2.9 k/uL (1.3-7.7); Neutrophils % (A) 55 %; Platelet Count 414 k/uL (150-450); RBC 5.14 m/uL (3.80-5.40); WBC 5.3 k/uL (3.8-10.6)
[2022-02-01 12:51] LABS: Partial Thromboplastin Time 21.2 sec (22.0-30.0)
[2022-02-01 12:57] LABS: HGB 15.4 gm/dL (11.4-16.0)
[2022-02-01] MEDS ORDERED: DILTIAZEM 125 MG in SODIUM CHLORIDE 0.9% 100 ML IV SCH (13:15)
[2022-02-01] MEDS ORDERED: DILTIAZEM DRIP BOLUS FROM BAG 1 MG SOLN IV ONE ×2 (13:15→14:50)
--- NOTE | 2022-02-01 14:01 | CT ---
EXAMINATION TYPE: CT abdomen pelvis w con CT DLP: 1015.8 mGycm, Automated exposure control for dose reduction was used. DATE OF EXAM: 02/01/2022 1:09 PM COMPARISON: CT chest 09/08/2021. CLINICAL INDICATION:Female, 82 years old with history of abd pain; Abdominal and lower back pain. Edy ble bypass recently TECHNIQUE: Standard CT of the abdomen and pelvis following the administration of 100 cc of Isovue 3 00 IV contrast material. Coronal and sagittal reformats were performed. FINDINGS: LOWER CHEST: Small left and moderate right pleural effusions with associated atelectasis. Postsurgica l changes with median sternotomy wires and foci of gas with trace fluid at the sternotomy site. Epica rdial leads identified. Cardiomegaly with aortic valve replacement and coronary artery calcifications . ABDOMEN LIVER: Hepatic steatosis with cirrhotic morphology including nodular contour and widened fissures. No suspicious lesions. Portal vein and hepatic veins appear pain. GALLBLADDER AND BILE DUCTS: Mild gallbladder wall thickening which is nonspecific in the setting of a scites. No biliary ductal dilatation. PANCREAS: Unremarkable. SPLEEN: Peripheral wedge-shaped low-attenuation left inferior pole region likely representing a small infarct. ADRENAL GLANDS: Unremarkable. KIDNEYS AND URETERS: No hydronephrosis or renal calculi. Peripheral right mid kidney 1.3 cm hyperdens e lesion. PELVIS BLADDER: Incompletely distended but grossly unremarkable. REPRODUCTIVE: Unremarkable. ABDOMEN & PELVIS STOMACH AND BOWEL: Stomach and duodenum are unremarkable. Distal colonic diverticulosis without evide nce for definitive diverticulitis. The appendix is within normal limits. No evidence of bowel obstruc tion. PERITONEUM: Small pneumoperitoneum. Small amount of ascites throughout the abdomen and pelvis. No org anized fluid collection. VASCULATURE: Infrarenal abdominal aortic ectasia measuring up to 2.6 cm. Saccular aneurysm of the rig ht common iliac artery measuring up to 1.2 cm (series 22, image 42). Atherosclerotic calcification of the aorta and its branches. Severe stenosis at the origin of the right common carotid artery. Celiac axis, SMA, and bilateral renal arteries are patent. The YAMIL is not definitively visualized. MUSCULOSKELETAL: No acute osseous abnormalities LYMPH NODES: No gross evidence for lymphadenopathy. SOFT TISSUE/ABDOMINAL WALL: Tiny fat filled umbilical hernia. Right ventral wall subcutaneous density likely related to medication injection. IMPRESSION: 1. Post surgical changes of the sternum with median sternotomy wires, trace fluid and gas. There is associated pneumoperitoneum. 2. Small left and [id number] right pleural effusions associated atelectasis. 3. Cirrhotic steatotic liver with small volume ascites throughout the abdomen and pelvis. 4. Peripheral small low-attenuation region within the spleen which may represent a small splenic inf arct. 5. Nonspecific gallbladder wall thickening which may be related to #3. Consider gallbladder ultrasou nd if there is clinical concern for acute cholecystitis. 6. 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 7. Indeterminate hyperdense 1.3 cm right renal lesion which may represent a proteinaceous/hemorrhagi c cyst. Further evaluation with renal ultrasound is recommended. 8. Colonic diverticulosis without evidence for acute diverticulitis.
[2022-02-01] MEDS ORDERED: PIPERACILLIN-TAZOBACTAM 3.375 GM in SODIUM CHLORIDE 0.9% 100 ML IVPB STA (14:50)
[2022-02-01] MEDS ORDERED: NALOXONE 0.4 MG/ML 1 ML VIAL IV PRN (15:14)
[2022-02-01] MEDS ORDERED: HEPARIN SODIUM 1,000 UN/ML (10ML VL) IV PRN (16:23)
[2022-02-01] MEDS ORDERED: HEPARIN SODIUM 1,000 UN/ML (10ML VL) IV ONE (16:23)
--- NOTE | 2022-02-01 16:28 | P.GSCN ---
History of Present Illness Consult date: 02/01/22 Reason for Consult: Abdominal pain, pneumoperitoneum History of present illness: This is a 2-year-old female with an extensive medical history. Patient states that she had sudden abdominal pain this morning. She states her pain was 8 out of 10. She was seen by her primary care doctor. She was sent to the emergency room for what was thought to be atrial fibrillation with SVT. Patient underwent CAT scan due to her abdominal pain. Patient's found have pneumoperitoneum in the upper abdomen. Patient had recent surgery at [facility]. She had a CABG and has a sternal wound. Past Medical History Past Medical History: Atrial Fibrillation, Atrial Flutter, Coronary Artery Disease (CAD), Heart Failure, COPD, CVA/TIA, GERD/Reflux, Hyperlipidemia, Hypertension, Osteoarthritis (OA), Renal Disease, Skin Disorder, Vascular Disorder Additional Past Medical History / Comment(s): Pt had CABG 10/2021 with bovine aortic valve replacement and had post op afib/renal failure with brief period of hemodialysis/sternal wound infection and was told she had had a CVA at some po int in her life per cat scan and severe COPD/now has home oxygen prn. Other hx: A flutter with ablation, caratid stenosis, elevated LFT, psoriasis. History of Any Multi-Drug Resistant Organisms: None Reported Past Surgical History: Cardiac Ablation, Coronary Bypass/CABG, EPS, Heart Catheterization, Hysterectomy, Tubal Ligation Additional Past Surgical History / Comment(s): 10/2021 CABG 2 vessel with aortic valve (bovine) replacement, I&D sternal infection, EPS with aflutter ablation, ectopic with oophorectomy, colonoscopies. Past Anesthesia/Blood Transfusion Reactions: No Reported Reaction Past Psychological History: No Psychological Hx Reported Additional Psychological History / Comment(s): Pt resides at home with her spouse. Pt states she has home care for her sternal wound/PT and an aide but cannot recall name of company. She is ambulating with a walker and would like a cane. She is not driving, her spouse can drive. Smoking Status: Former smoker Past Alcohol Use History: Rare Additional Past Alcohol Use History / Comment(s): Pt started smoking in 1960 and quit in 2011. She was an on and off smoker over those years. Past Drug Use History: None Reported - Past Family History Mother Family Medical History: Cancer, CVA/TIA Additional Family Medical History / Comment(s): Breast cancer. Daughter(s) Family Medical History: Cancer Additional Family Medical History / Comment(s): One daughter had kidney cancer, 2nd daughter had breast cancer. Father Family Medical History: Coronary Artery Disease (CAD) Sister(s) Family Medical History: Cancer Additional Family Medical History / Comment(s): BREAST CANCER and Brain Cancer. Medications and Allergies Home Medications Medication Instructions Recorded Confirmed Type Aspirin 81 mg PO DAILY chew 08/03/17 02/01/22 Rx Albuterol Sulfate [Albuterol 2 puff INHALATION RT-Q4H PRN 02/01/22 02/01/22 History Sulfate Hfa] Atorvastatin [Lipitor] 80 mg PO HS 02/01/22 02/01/22 History Furosemide [Lasix] 40 mg PO BID@0900,1600 02/01/22 02/01/22 History Metoprolol Tartrate [Lopressor] 50 mg PO BID 02/01/22 02/01/22 History Multivitamins, Thera [Multivitamin 1 tab PO DAILY 02/01/22 02/01/22 History (formulary)] Spironolactone [Aldactone] 12.5 mg PO DAILY 02/01/22 02/01/22 History icosapent ethyL [Icosapent Ethyl] 2 gm PO BID 02/01/22 02/01/22 History Allergies Allergy/AdvReac Type Severity Reaction Status Date / Time No Known Allergies Allergy Verified 02/01/22 13:20 Surgical - Exam Vital Signs Temp Pulse Resp BP Pulse Ox 97.5 F L 146 H 22 129/85 79 L 02/01/22 11:45 02/01/22 11:45 02/01/22 11:45 02/01/22 11:45 02/01/22 11:45 - General well developed, moderate distress - Eyes PERRL - ENT normal pinna - Neck no masses - Respiratory normal expansion - Cardiovascular Rhythm: regular - Abdomen Mild diffuse tenderness throughout Abdomen: soft Results - Labs 02/01/22 12:00 02/01/22 12:00 Abnormal Lab Results - Last 24 Hours (Table) 02/01/22 02/01/22 02/01/22 Range/Units 12:00 12:00 12:00 Hct 47.8 H (34.0-46.0) % APTT 21.2 L (22.0-30.0) sec Potassium 3.4 L (3.5-5.1) mmol/L Chloride 90 L (98-107) mmol/L Carbon Dioxide 37 H (22-30) mmol/L BUN 31 H (7-17) mg/dL Creatinine 1.16 H (0.52-1.04) mg/dL Glucose 178 H (74-99) mg/dL Plasma Lactic Acid Cedric (0.7-2.0) mmol/L AST 213 H (14-36) U/L ALT 158 H (4-34) U/L Alkaline Phosphatase 249 H (38-126) U/L Lipase 334 H (23-300) U/L 02/01/22 Range/Units 12:00 Hct (34.0-46.0) % APTT (22.0-30.0) sec Potassium (3.5-5.1) mmol/L Chloride (98-107) mmol/L Carbon Dioxide (22-30) mmol/L BUN (7-17) mg/dL Creatinine (0.52-1.04) mg/dL Glucose (74-99) mg/dL Plasma Lactic Acid Cedric 3.7 H* (0.7-2.0) mmol/L AST (14-36) U/L ALT (4-34) U/L Alkaline Phosphatase (38-126) U/L Lipase (23-300) U/L Diabetes panel 02/01/22 Range/Units 12:00 Sodium 137 (137-145) mmol/L Potassium 3.4 L (3.5-5.1) mmol/L Chloride 90 L (98-107) mmol/L Carbon Dioxide 37 H (22-30) mmol/L BUN 31 H (7-17) mg/dL Creatinine 1.16 H (0.52-1.04) mg/dL Glucose 178 H (74-99) mg/dL Calcium 9.2 (8.4-10.2) mg/dL AST 213 H (14-36) U/L ALT 158 H (4-34) U/L Alkaline Phosphatase 249 H (38-126) U/L Total Protein 8.1 (6.3-8.2) g/dL Albumin 3.6 (3.5-5.0) g/dL Calcium panel 02/01/22 Range/Units 12:00 Calcium 9.2 (8.4-10.2) mg/dL Albumin 3.6 (3.5-5.0) g/dL Pituitary panel 02/01/22 Range/Units 12:00 Sodium 137 (137-145) mmol/L Potassium 3.4 L (3.5-5.1) mmol/L Chloride 90 L (98-107) mmol/L Carbon Dioxide 37 H (22-30) mmol/L BUN 31 H (7-17) mg/dL Creatinine 1.16 H (0.52-1.04) mg/dL Glucose 178 H (74-99) mg/dL Calcium 9.2 (8.4-10.2) mg/dL Adrenal panel 02/01/22 Range/Units 12:00 Sodium 137 (137-145) mmol/L Potassium 3.4 L (3.5-5.1) mmol/L Chloride 90 L (98-107) mmol/L Carbon Dioxide 37 H (22-30) mmol/L BUN 31 H (7-17) mg/dL Creatinine 1.16 H (0.52-1.04) mg/dL Glucose 178 H (74-99) mg/dL Calcium 9.2 (8.4-10.2) mg/dL Total Bilirubin 0.6 (0.2-1.3) mg/dL AST 213 H (14-36) U/L ALT 158 H (4-34) U/L Alkaline Phosphatase 249 H (38-126) U/L Total Protein 8.1 (6.3-8.2) g/dL Albumin 3.6 (3.5-5.0) g/dL - Imaging CT scan - abdomen: report reviewed (Computed tomography scan shows evidence of pneumoperitoneum. There is no significant bowel disease seen. There is no oral contrast) Assessment and Plan Assessment: Abdominal pain, pneumoperitoneum Tachycardia Patient most likely has a perforated viscus. It is unclear where her perforation chest. I would guess the patient may have had a small perforated gastric ulcer or duodenal ulcer due to location of the free air. I discussed these fundoplication and her family. Patient's and granddaughter normal. The patient's and her family requesting transfer [facility] due to familiar with medical staff there. The patient would like to have surgery at [facility].
[2022-02-01] MEDS ORDERED: HEPARIN SOD,PORK IN 0.45% NACL 25,000 UNIT in 0.45% NACL 1 250ML.BAG IV SCH (16:30)
--- NOTE | 2022-02-01 17:12 | US ---
EXAMINATION TYPE: US gallbladder DATE OF EXAM: 02/01/2022 COMPARISON: NONE CLINICAL HISTORY: elevated liver/gb enzymes. TECHNIQUE: Multiple sonographic images of the right upper quadrant are obtained. FINDINGS: EXAM MEASUREMENTS: Liver Length: 15.1 cm Gallbladder Wall: 0.4 cm CBD: 0.6 cm Right Kidney: 9.3 x 3.6 x 5.3 cm [employer] [place] NOTES: Pancreas: Obscured by bowel gas Liver: grossly heterogeneous nodular contour. Gallbladder: wall slightly thickened, somewhat limited by overlying bowel gas Evidence for sonographic Matamoros's sign: no CBD: wnl Right Kidney: possible mild hydro, cyst measuring 1.1 x 0.9 x 1.3cm Mild ascites. IMPRESSION: 1. Hepatocellular disease with a nodular contour to the liver, correlate for cirrhosis. 2. No evidence of cholelithiasis or acute cholecystitis.
[2022-02-01 18:05] VITALS: BP 91/52; PULSE 128; RESP 22; TEMP 97.6
== END 2022-02-01 18:00 | disposition other institution (70) ==
LOC: EC 11:41 → UNDOADMIN 15:15 → 2SICU 15:15 → EC 18:00
DX: I48.20 Chronic atrial fibrillation, unspecified (principal); I11.0 Hypertensive heart disease with heart failure; I50.9 Heart failure, unspecified; E87.2 Acidosis; R10.84 Generalized abdominal pain; I25.10 Atherosclerotic heart disease of native coronary artery without angina pectoris; K21.9 Gastro-esophageal reflux disease without esophagitis; E78.5 Hyperlipidemia, unspecified; M19.90 Unspecified osteoarthritis, unspecified site; Z87.891 Personal history of nicotine dependence; Z79.899 Other long term (current) drug therapy; J44.9 Chronic obstructive pulmonary disease, unspecified; I25.2 Old myocardial infarction; Z95.1 Presence of aortocoronary bypass graft; Z79.82 Long term (current) use of aspirin
CPT/HCPCS: 36415; 93005; 83880; 80053; 83605; 83690; 84484; 85025; 85610; 85730; 87040; 71045; 76705; 74177; 99291; 96365; 96368; 96375; 96366; J2543; J1644 ×2; J1170; Q9967

== ENCOUNTER → 2022-03-24 | Outpatient (CLI) | payer MEDICARE ==
--- NOTE | 2022-03-24 12:39 | XR ---
EXAMINATION TYPE: XR chest 2V DATE OF EXAM: 03/24/2022 COMPARISON: 02/01/2022 TECHNIQUE: PA and lateral views submitted. HISTORY: Shortness of breath FINDINGS: Postoperative change. Diffuse interstitial pattern with bilateral infiltrate and pleural effusion. No pneumothorax. Osseous structures are stable. Heart size normal. Hypertrophic degenerative change of the spine. Prostatic cardiac valve noted. IMPRESSION: 1. Correlate for mild CHF
== END | disposition home or self-care (01) ==
LOC: RADXRMAIN 12:15
PROVIDERS: ATTEND Nurse Practitioner Family
DX: T81.31XA Disruption of external operation (surgical) wound, not elsewhere classified, initial encounter (principal)
CPT/HCPCS: 71046

== ENCOUNTER 2022-06-25 09:58 | Day surgery (SDC) | payer MEDICARE ==
[2022-06-24 12:15] VITALS: BMI 26.2
[2022-06-25 10:23] LABS: Glucose,Whole Blood 107 mg/dL (70-110)
[2022-06-25 10:24] VITALS: BP 139/83; PULSE 88; RESP 16; TEMP 98.4
[2022-06-25] MEDS ORDERED: LIDOCAINE 1% INJ 10MG/ML (30 ML VIAL-PF) SQ ONE (11:12)
--- NOTE | 2022-06-25 11:41 | IR ---
PICC LINE PLACEMENT: HISTORY: Infection requiring long-term antibiotic therapy PROCEDURE: Ultrasound and fluoroscopic guidance of PICC line placement. PRETZEL PACKER: Dr. Mario COMPLICATIONS: None ANESTHESIA: 1. 1% Lidocaine locally. FINDINGS/TECHNIQUE: The procedure was explained to the patient. The risks, complications, benefits and alternatives were discussed and any questions were answered. Informed consent was obtained. The patient was placed supine on the fluoroscopic table and prepped and draped in the usual sterile fash ion. Utilizing a 21 gauge needle and sonographic and fluoroscopic guidance, access in the left basi lic vein was achieved and there is placement of a 0.018 guidewire. The vein is patent. A 4-F. sheat h was placed over the guidewire. The guidewire and dilator were removed and a 4-F. PICC line was yoly harvey through the sheath with the tip at the level of the SVC. The sheath was removed, the catheter wa s flushed and secured into position. The patient was stable throughout the procedure and remained st able upon discharge from the Department of Radiology. The vein puncture was patent under ultrasound. A gutierrez scale image was obtained to document patency of the vein punctured. All elements of the maximal barrier technique were utilized. FLUOROSCOPY TIME: 0.2 minutes IMPRESSION: Successful PICC line placement under ultrasound and fluoroscopic guidance.
== END 2022-06-25 11:48 | disposition home or self-care (01) ==
LOC: CATHCVL 09:58
PROVIDERS: ATTEND Radiology Diagnostic Radiology
DX: T81.49XA Infection following a procedure, other surgical site, initial encounter (principal); Y83.8 Other surgical procedures as the cause of abnormal reaction of the patient, or of later complication, without mention of misadventure at the time of the procedure; E66.9 Obesity, unspecified; Z68.25 Body mass index [BMI] 25.0-25.9, adult; Z82.3 Family history of stroke; Z83.49 Family history of other endocrine, nutritional and metabolic diseases; Z82.49 Family history of ischemic heart disease and other diseases of the circulatory system; Z79.1 Long term (current) use of non-steroidal anti-inflammatories (NSAID); Z79.2 Long term (current) use of antibiotics; Z79.52 Long term (current) use of systemic steroids; Z79.02 Long term (current) use of antithrombotics/antiplatelets; Z79.01 Long term (current) use of anticoagulants; Z79.899 Other long term (current) drug therapy
CPT/HCPCS: 36573; C1751; C1769; J2001

== ENCOUNTER → 2022-07-22 | Outpatient (CLI) | payer MEDICARE ==
--- NOTE | 2022-07-25 19:55 | US ---
EXAMINATION TYPE: US arterial LE multi level DATE OF EXAM: 07/22/2022 12:00 PM CLINICAL HISTORY: I73.9 PERIPHERAL VASCULAR DISEASE, UNSPECIFIED. Patients states feet feel cold and turn purple Comparison: CT abdomen and pelvis February 01, 2022 History of: Smoker: Previous Hypertension: Takes medication Diabetic: Yes Hyperlipidemia: Yes TIA/CVA: No Previous Vascular Surgery: No CAD: Yes PA: No Vascular Ulcers: No Claudication: No Gangrene: No Doppler Waveforms: Right: Biphasic Left: Biphasic Right Brachial Pressure: 132 Left Brachial Pressure: Left pressure deferred due to PICC line Ankle-Brachial Indices: Right: 0.9 Left: 1.2 Toe Brachial Indices: Right: 0.61 Left: 0.48 IMPRESSION: Normal bilateral DIMAS values. Diminished left sided TBI consistent with at least mild per ipheral arterial disease in the left foot.
== END | disposition home or self-care (01) ==
LOC: RADUSWWP 11:24
PROVIDERS: ATTEND Internal Medicine
DX: I73.9 Peripheral vascular disease, unspecified (principal); E11.51 Type 2 diabetes mellitus with diabetic peripheral angiopathy without gangrene; I10 Essential (primary) hypertension; I25.10 Atherosclerotic heart disease of native coronary artery without angina pectoris; E78.5 Hyperlipidemia, unspecified; Z87.891 Personal history of nicotine dependence
CPT/HCPCS: 93923

== ENCOUNTER → 2022-11-04 | Outpatient (CLI) | payer MEDICARE ==
--- NOTE | 2022-11-04 10:36 | CT ---
EXAMINATION TYPE: CT chest w con DATE OF EXAM: 11/04/2022 COMPARISON: Prior chest CT September 08, 2021 HISTORY: lung nodule CT DLP: 391.2 mGycm. Automated Exposure Control for Dose Reduction was Utilized. TECHNIQUE: CT scan of the thorax is performed following with IV Contrast, patient injected with 60 m L of Isovue 370. FINDINGS: LUNGS: Mild to moderate underlying emphysematous change is redemonstrated. A few scattered small nodu les are again seen. For reference is a stable 3-4 mm peripheral right upper lobe nodule axial image 20. For reference is a stable 6 x 4 mm peripheral right middle lobe nodule axial image 39. No new or enlarging greater dayanna n 6 mm pulmonary nodules are seen. Slightly more prominent mild to moderate bibasilar linear scarring and/or atelectasis. Trace bibasila r pleural effusions on current study. No pneumothorax is evident bilaterally. MEDIASTINUM: There are new sternotomy changes with incomplete healing along superior aspect. No new greater than 1 cm mediastinal lymph nodes. There are new epicardial pacer wires. Cardiomegaly with mo derate biatrial dilatation and mild biventricular dilatation is noted. No pericardial effusion is see n. [place] coronary artery calcification is present. Prominent pulmonary arteries raise concern for un derlying pulmonary artery hypertension. OTHER: Focal scar tissue right chest wall axial image 43. Lobulated contour to the liver, correlate c linically to exclude cirrhosis. Partial visualization of exophytic 1.0 cm hyperdense lesion right kid ezequiel anteriorly axial image 73 is too small to definitively characterize. Cortical scar in the midline of the upper abdomen is partially imaged. IMPRESSION: Stable small bilateral pulmonary nodules. No significant new or enlarging greater than 6 mm pulmonary nodules. Other findings as detailed above.
--- NOTE | 2022-11-04 11:14 | US ---
EXAMINATION TYPE: US carotid duplex BILAT DATE OF EXAM: 11/04/2022 COMPARISON: 05/26/2021 CLINICAL INDICATION: Female, 82 years old with history of [id number] CAROTID STENOSIS BILAT; stenosis TECHNIQUE: Carotid duplex ultrasound examination. Indirect Doppler criteria was utilized. FINDINGS: EXAM MEASUREMENTS: RIGHT: Peak Systolic Velocity (PSV) cm/sec ----- Right CCA: 53.2 ----- Right ICA: 82.7 ----- Right ECA: 90 ICA/CCA ratio: 1.6 RIGHT: End Diastole cm/sec ----- Right CCA: 16.9 ----- Right ICA: 27.5 ----- Right ECA: 12.9 LEFT: Peak Systolic Velocity (PSV) cm/sec ----- Left CCA: 66 ----- Left ICA: 116 ----- Left ECA: 90.4 ICA/CCA ratio: 1.8 LEFT: End Diastole cm/sec ----- Left CCA: 19.7 ----- Left ICA: 33.3 ----- Left ECA: 9.7 VERTEBRALS (direction of flow): Right Vertebral: Antegrade Left Vertebral: Antegrade Rhythm: Normal INTRAMURAL DIRECTOR NOTES: Bilateral plaque visualized. No significant stenosis seen IMPRESSION: Bilateral atherosclerotic plaque no significant hemodynamic stenosis. Criteria for Assigning % of Stenosis / Diameter reduction (Estimation based on the indirect measurements of the internal carotid artery velocities (ICA PSV). 1. Normal (no stenosis)=ICA PSV < 125 cm/s: ratio < 2.0: ICA EDV<40 cm/s. 2. Less than 50% stenosis=ICA PSV < 125 cm/s: ratio < 2.0: ICA EDV<40 cm/s. 3. 50 to 69% stenosis=ICA PSV of 125 to 230 cm/s: ration 2.0 ? 4.0: ICA EDV 40-100 cm/s. 4. Greater than 70% stenosis to near occlusion= ICA PSV > 230 cm/s: ratio > 4.0: ICA EDV > 100 cm/s. 5. Near occlusion= ICA PSV velocities may be low or undetectable: variable ratio and ICA EDV. 6. Total occlusion=unable to detect flow.
--- NOTE | 2022-11-04 11:23 | CT ---
EXAMINATION TYPE: CT angio abd aorta w/Runoff DATE OF EXAM: 11/04/2022 HISTORY: PAD, blue color change in legs. CT DLP: 879.7mGycm Automated Exposure Control for Dose Reduction was Utilized. CONTRAST: CT scan of the abdomen and pelvis with bilateral lower extremity runoff is performed with IV Contrast , patient injected with 90 mL of Isovue 370. Three-D reconstructed images are created on an [employer] workstation and reviewed. COMPARISON: Prior CT abdomen and pelvis February 01, 2022 FINDINGS: VASCULAR: Moderate peripheral calcified plaque throughout the aorta extending into branch vessels. No greater than 3.0 cm aneurysm. Redemonstration of prominent calcified plaque at origin of the celiac artery. Significant stenosis at this level sagittal image 84 is likely present. There is significant stenosis greater than 50% at origin of the SMA due to mixed plaque sagittal image 85. No significant stenosis in the bilateral single renal arteries. Patent YAMIL is not seen. Significant stenosis at origin of the right common iliac artery with prominent predominantly calcifie d plaque is redemonstrated. There is a tortuous course. This is difficult to accurately quantify due to above. There is moderate to severe peripheral calcified plaque in the right common iliac artery wi thout additional significant stenosis. There is more mild plaque in the right external iliac artery w ithout significant stenosis. There is moderate to severe peripheral calcified plaque in the left comm on iliac artery without significant stenosis. There is moderate peripheral calcified plaque in the pr oximal and distal external iliac artery without significant stenosis. There is moderate peripheral calcified plaque in right common femoral artery without significant sten osis. Superficial femoral artery on the right shows focal moderate peripheral calcified plaque distal ly near axial image 321 without significant stenosis. There is mild to moderate mixed plaque in the l evel of the mid popliteal artery. There is poor contrast opacification below the knees making evaluat ion nondiagnostic distally. There is moderate to severe peripheral calcified plaque in the left common femoral artery without def initive significant stenosis. There is mild calcified plaque in the distal left superficial femoral a rtery without significant stenosis. There is mild calcified plaque in the proximal to mid popliteal a rtery without significant stenosis. LUNG BASES: Partial visualization of sternotomy and overlying scar tissue. Partial visualization of cardiomegaly. Mild bibasilar linear scarring and/or atelectasis is redemonstrated with trace bilatera l pleural effusions on current study. LIVER/GB: Slightly lobulated contour to the low dense liver raising concern for underlying cirrhosis is redemonstrated. No new biliary dilatation. PANCREAS: No significant abnormality is seen. SPLEEN: No significant abnormality is seen. ADRENALS: No significant abnormality is seen. KIDNEYS: Stable 1.4 cm partially exophytic hyperdense rounded lesion anterior right kidney axial imag e 93 likely reflecting Proteinaceous or hemorrhagic cyst. Contrast excretion into bladder on current study. BOWEL: Stomach poorly distended and thus suboptimally evaluated. No suspicious small or large bowel d ilatation. Sigmoid colonic diverticulosis is redemonstrated. UTERUS/ADNEXA: No gross abnormality seen. LYMPH NODES: No greater than 1cm abdominal or pelvic lymph nodes are appreciated. OSSEOUS STRUCTURES: Persistent moderate to severe disc space narrowing at L5-S1 level. There are bila teral pars defect L5 level with minimal spondylolisthesis redemonstrated. LOWER EXTREMITIES: Symmetric moderate medial tibiofemoral compartment narrowing bilaterally in both k nees. No significant joint effusion. OTHER: Focal eventration or hernia defect near level of umbilicus axial image 123 is new from prior. IMPRESSION: 1. Suboptimal study. Nondiagnostic vascular evaluation of the bilateral lower extremities below the k nees. There is significant stenosis at origin of the right common iliac artery. Advise Vascular surgi rom referral to further evaluate. 2. Additional significant stenosis at origin of celiac trunk and SMA. Correlate clinically. Vascular surgical referral could also further evaluate.
== END | disposition home or self-care (01) ==
LOC: RADCTMAIN 08:15
PROVIDERS: ATTEND Internal Medicine
DX: I65.23 Occlusion and stenosis of bilateral carotid arteries (principal); I73.9 Peripheral vascular disease, unspecified; R91.8 Other nonspecific abnormal finding of lung field
CPT/HCPCS: 82565; 84520; 93880; 71260; 75635; 36415; Q9967 ×2

== ENCOUNTER 2022-12-01 07:41 | Day surgery (SDC) | payer MEDICARE ==
[2022-11-29 15:58] VITALS: BMI 28.9
[~2022-12-01 07:41] MED LIST changes: +LACTATED RINGERS 1,000 ML IV SCH; +LIDOCAINE 1% (10MG/ML) FOR IV START INTRADERMA PRN; +ONDANSETRON 4 MG/2 ML VIAL IVP PRN; -REGADENOSON 0.4 MG/5 ML SYRINGE IV PRN
[2022-12-01] MEDS ORDERED: LACTATED RINGERS 1,000 ML IV ONE (08:00)
[2022-12-01 08:24] LABS: Glucose,Whole Blood 99 mg/dL (70-110)
[2022-12-01 08:27] VITALS: BP 149/69; PULSE 66; RESP 16; TEMP 97.3
== END 2022-12-01 09:05 | disposition home or self-care (01) ==
LOC: ORWHC2ENDO 07:41
PROVIDERS: ATTEND Internal Medicine Gastroenterology
DX: Z53.8 Procedure and treatment not carried out for other reasons (principal); R19.5 Other fecal abnormalities

== ENCOUNTER → 2023-01-11 | Outpatient (CLI) | payer MEDICARE ==
--- NOTE | 2023-01-11 19:21 | BD ---
EXAMINATION TYPE: Axial Bone Density DATE OF EXAM: 01/11/2023 CLINICAL HISTORY: 82 years old Female. ICD-10 CODE: M85.851 OSTEOPENIA Height: 64 Weight: 170.7 FRAX RISK QUESTIONS: Alcohol (3 or more units per day): no Family History (Parent hip fracture): no Glucocorticoids (More than 3mos): no (Ex: prednisone, prednisolone, methylprednisolone, dexamethasone, and hydrocortisone). History of Fracture in Adulthood: no Secondary Osteoporosis: 1. Type 1 Diabetes: no 2. Hyperthyroidism: no 3. Menopause before 45: no 4. Malnutrition: no 5. Chronic liver disease: no Rheumatoid Arthritis: no Current Tobacco Use: no RISK FACTORS HISTORY OF: Surgery to Spine/Hip(right/left)/Wrist (right/left): no Family History of Osteoporosis: no Active: yes Diet low in dairy products/other sources of calcium: yes Postmenopausal woman: yes Lost more than 2 inches in height since high school: no MEDICATIONS: Additional History: EXAM MEASUREMENTS: Bone mineral densitometry was performed using the [employer] System. Bone mineral density as measured about the Lumbar spine is: ----- L1-L4(G/cm2): 1.337 T Score Values are as follows: ----- L1: 1.4 ----- L2: 1.9 ----- L3: 0.6 ----- L4: 1.3 ----- L1-L4: 1.3 Z Score Values are as follows: ----- L1: 2.8 ----- L2: 3.4 ----- L3: 2.1 ----- L4: 2.8 ----- L1-L4: 2.8 Bone mineral density has: decreased -2.4 % since study of: 03.22.2019 Bone mineral density about the R hip (g/cm2): 1.009 Bone mineral density about the L hip (g/cm2): 1.060 T Score values are as follows: -----R Neck: -0.8 -----L Neck: -0.4 -----R Total: 0.0 -----L Total: 0.4 Z Score values are as follows: -----R Neck: 1.2 -----L Neck: 1.6 -----R Total: 1.9 -----L Total: 2.3 Bone mineral density has: decreased -8.2 % since study of: 03.22.2019 FRAX%s: The graph provided illustrates a 10.8% chance for a major osteoporotic fx and a 2.2% chance f or the hips probability for fx in 10 years time. IMPRESSION: Normal (Values between +1 and -1 indicate normal bone mass). Consider repeating this study in 5 year s or sooner if there is some new clinical indication. NOTE: T-SCORE=SD OF THE YOUNG ADULT MEAN.
--- NOTE | 2023-01-12 19:09 | MM ---
Reason for Exam: Screening (asymptomatic). Last mammogram was performed 1 year(s) and 8 month(s) ago. Patient History: Menarche at age 12. First Full-Term at age 19. Left ovary removed at age 38. Postmenopausal. Estrogen, from age 55 until age 60. Patient used Hormonal Contraceptives for 13 years. Daughter had breast cancer, age 58. Mother had breast cancer, age 50. Sister had breast cancer under age 50. Risk Values: Trinity 5 year model risk: 7.4%. NCI Lifetime model risk: 9.8%. Prior Study Comparison: 03/22/2019 Bilateral Screening Mammogram, [facility]. 04/30/2020 Bilateral Screening Mammogram, [facility]. 05/05/2021 Bilateral Screening Mammogram, [facility]. Tissue Density: The breast tissue is heterogeneously dense. This may lower the sensitivity of mammography. Findings: Analyzed By CAD. Unchanged central asymmetric density left cc view anterior depth. Benign bilateral oil cyst and vascular calcifications are noted. There is no suspicious group of microcalcifications or new suspicious mass in either breast. Overall Assessment: Benign, BI-RAD 2 Management: Screening Mammogram of both breasts in 1 year. See note below in regards to patient's increased five-year Trinity score. Patient should continue monthly self-breast exams. A clinical breast exam by your physician is recommended on an annual basis. This exam should not preclude additional follow-up of suspicious palpable abnormalities. Note on Trinity scores and lifetime risk: 1. A Trinity score greater than 3% is considered moderate risk. If this is the case, consider specialist referral to assess eligibility for a risk reducing agent. 2. If overall lifetime risk for the development of breast cancer is 20% or higher, the patient may qualify for future screening with alternating mammogram and breast MRI. Electronically signed and approved by: Sancho Villareal M.D. Radiologist
== END | disposition home or self-care (01) ==
LOC: RADMAMWWP 14:38
PROVIDERS: ATTEND Internal Medicine
DX: Z12.31 Encounter for screening mammogram for malignant neoplasm of breast (principal); M85.851 Other specified disorders of bone density and structure, right thigh; Z80.3 Family history of malignant neoplasm of breast; Z78.0 Asymptomatic menopausal state
CPT/HCPCS: 77063; 77067; 77080

== ENCOUNTER → 2023-11-07 | Outpatient (CLI) | payer MEDICARE ==
[2023-11-07 13:00] LABS: African American GFR (CKD) 49 (>60 ml/min/1.73 sqM); Blood Urea Nitrogen 33 mg/dL (7-17); Non-African American GFR(CKD) 42 (>60 ml/min/1.73 sqM)
--- NOTE | 2023-11-07 13:32 | CT ---
EXAMINATION TYPE: CT chest w con DATE OF EXAM: 11/07/2023 COMPARISON: 11/04/2022 HISTORY: pulmonary nodule CT DLP: 658 mGycm Automated exposure control for dose reduction was used. CONTRAST: CT scan of the chest is performed with IV Contrast, patient injected with 70 mL of Isovue 300. FINDINGS: LUNGS: 5 mm right middle lobe pulmonary nodule lateral segment is redemonstrated. No other pulmonary nodules seen. There is no pleural effusion or pneumothorax seen. The tracheobronchial tree is patent . MEDIASTINUM: There are no greater than 1 cm hilar or mediastinal lymph nodes. No pericardial effusi on is seen. Thoracic aorta is of normal caliber. The heart is not enlarged. UPPER ABDOMEN: No significant abnormality appreciated. OTHER: No additional significant abnormality is seen. IMPRESSION: 5 mm right middle lobe pulmonary nodule lateral segment is redemonstrated. No other pulmonary nodules seen.
== END | disposition home or self-care (01) ==
LOC: RADCTMAIN 12:13
PROVIDERS: ATTEND Internal Medicine
DX: R91.1 Solitary pulmonary nodule (principal)
CPT/HCPCS: 82565; 84520; 71260; 36415; Q9967

== ENCOUNTER → 2024-01-13 | Outpatient (CLI) | payer MEDICARE ==
--- NOTE | 2024-01-15 15:18 | MM ---
Reason for Exam: Screening (asymptomatic). Last screening mammogram was performed 12 month(s) ago. Patient History: Menarche at age 12. First Full-Term at age 19. Left ovary removed at age 38. Postmenopausal. Estrogen, from age 55 until age 60. Patient used Hormonal Contraceptives for 13 years. Daughter had breast cancer, age 58. Mother had breast cancer, age 50. Sister had breast cancer under age 50. Risk Values: Trinity 5 year model risk: 7.1%. NCI Lifetime model risk: 8.6%. Prior Study Comparison: 04/30/2020 Bilateral Screening Mammogram, [facility]. 05/05/2021 Bilateral Screening Mammogram, [facility]. 01/11/2023 Bilateral MG 3D screening mammo w/cad, [facility]. Tissue Density: There are scattered areas of fibroglandular density. Findings: Analyzed By CAD. The pattern is symmetrical. No significant interval change. Artifact is present from the patient's bandages which limits some of the evaluation. Benign vascular and round calcifications are present. Artifact is suspected below the bandage. No suspicious groups of microcalcifications, spiculated or lobular masses, architectural distortion or other secondary signs of malignancy are mammographically apparent. Overall Assessment: Benign, BI-RAD 2 Management: Screening Mammogram of both breasts in 1 year. A negative mammogram report should not preclude additional follow up of suspicious palpable abnormalities. Patient should continue monthly self breast exam. A clinical breast exam by your physician is recommended on an annual basis and results should be correlated with mammographic findings. Note on Trinity scores and lifetime risk: 1. A Trinity score greater than 3% is considered moderate risk. If this is the case, consider specialist referral to assess eligibility for a risk reducing agent. 2. If overall lifetime risk for the development of breast cancer is 20% or higher, the patient may qualify for future screening with alternating mammogram and breast MRI. Electronically signed and approved by: Selvin Phelps D.O. Radiologis
== END | disposition home or self-care (01) ==
LOC: RADMAMWWP 12:45
PROVIDERS: ATTEND Internal Medicine
DX: Z12.31 Encounter for screening mammogram for malignant neoplasm of breast (principal); R92.323 Mammographic fibroglandular density, bilateral breasts; Z78.0 Asymptomatic menopausal state; Z80.3 Family history of malignant neoplasm of breast
CPT/HCPCS: 77063; 77067

== ENCOUNTER → 2025-01-14 | Outpatient (CLI) | payer MEDICARE ==
--- NOTE | 2025-01-14 14:51 | MM ---
Reason for Exam: Screening (asymptomatic). Last screening mammogram was performed 12 month(s) ago. Patient History: Menarche at age 12. First Full-Term at age 19. Left ovary removed at age 38. Postmenopausal. Estrogen, from age 55 until age 60. Patient used Hormonal Contraceptives for 13 years. Daughter had breast cancer, age 58. Mother had breast cancer, age 50. Sister had breast cancer, age 50. Risk Values: Trinity 5 year model risk: 6.6%. NCI Lifetime model risk: 7.4%. Prior Study Comparison: 05/05/2021 Bilateral Screening Mammogram, [facility]. 01/11/2023 Bilateral MG 3D screening mammo w/cad, [facility]. 01/13/2024 Bilateral MG 3D screening mammo w/cad, [facility]. Tissue Density: There are scattered areas of fibroglandular density. Findings: Analyzed By CAD. Right breast: There is no suspicious group of microcalcifications or new suspicious mass. Benign-appearing calcifications right breast. Left breast: There is no suspicious group of microcalcifications or new suspicious mass. Benign-appearing calcifications left breast. Overall Assessment: Benign, BI-RAD 2 Management: Screening Mammogram of both breasts in [address] [facility] will attempt to contact patient to return for supplemental views and ultrasound if indicated. Patient should continue monthly self-breast exams. A clinical breast exam by your physician is recommended on an annual basis. This exam should not preclude additional follow-up of suspicious palpable abnormalities. Note on Trinity scores and lifetime risk: 1. A Trinity score greater than 3% is considered moderate risk. If this is the case, consider specialist referral to assess eligibility for a risk reducing agent. 2. If overall lifetime risk for the development of breast cancer is 20% or higher, the patient may qualify for future screening with alternating mammogram and breast MRI. [facility], , 01/14/2025 2:01 PM. Electronically signed and approved by: Erick Godinez DO
== END | disposition home or self-care (01) ==
LOC: RADMAMWWP 12:28
PROVIDERS: ATTEND Internal Medicine
DX: Z12.31 Encounter for screening mammogram for malignant neoplasm of breast (principal); R92.323 Mammographic fibroglandular density, bilateral breasts; Z92.0 Personal history of contraception; Z80.3 Family history of malignant neoplasm of breast; Z78.0 Asymptomatic menopausal state
CPT/HCPCS: 77063; 77067